=== PATIENT | female | born 1980 | race Caucasian/White ===

== ENCOUNTER → 2019-05-14 13:23 | Outpatient (CLI) | payer OTHER, SELFPAY ==
--- NOTE | 2019-05-14 13:37 | RAD_ITS ---
STUDY: X-RAY - LUMBAR SPINE REASON FOR EXAM: Female, 39 years old. LOWER BACK PAIN, GETTING WORSE TECHNIQUE: 5 view(s) of the lumbar spine were obtained. COMPARISON: None FINDINGS: Normal lumbar lordosis. There is no substantial scoliosis. There is a normal alignment of the vertebrae. Normal vertebral bodies and endplates. Normal disc space heights. The soft tissue structures are unremarkable. RAD/L/S Spine Min 4 Views IMPRESSION: Normal x-ray examination of the lumbar spine. Electronically Signed: Marciano Greco, at 16:39 EST Tel , Service support ,
== END ==
PROVIDERS: PCP Internal Medicine; Referring Provider Internal Medicine; Visit Provider Internal Medicine
DX: M54.5 Low back pain (principal)
CPT/HCPCS: 72110

== ENCOUNTER → 2021-01-26 14:56 | Outpatient (CLI) | payer OTHER, SELFPAY ==
--- NOTE | 2021-01-26 15:00 | BI_ITS ---
MAMMOGRAPHY - BILATERAL SCREENING REASON FOR EXAM: Female, 40 years old. Routine annual screening examination. PERTINENT HISTORY: Non-contributory. TECHNIQUE: Digital bilateral breast pily (3D mammographic acquisition) in the CC and MLO projections. 2-D mediolateral oblique (MLO) and craniocaudad (CC) views of both breasts were obtained. CAD: Full Field Digital Mammography with Computer Added Detection was performed. COMPARISON: None. Baseline examination. FINDINGS: Breast Composition: There are scattered areas of fibroglandular density. There is a 5 mm x 5 nodule in the anterior retroareolar region of the left breast. Correlation with ultrasound is recommended. No other significant abnormalities are identified. BI/SCRN MAMM (CAD)W/PILY BILAT IMPRESSION: 5 mm x 5 mm nodule in the anterior retroareolar region left breast. Collision with ultrasound is recommended. ASSESSMENT CATEGORY: BIRADS Category 0: Incomplete. Need additional imaging evaluation. A letter regarding these results will be sent to the patient by the facility within 30 days. Approximately 10% of breast cancers are not detected by mammography. A normal mammogram should not delay biopsy of a clinically suspicious abnormality. [id number] Electronically Signed: Carlos Medellin MD at 8:08 EST , Service support ,
== END ==
PROVIDERS: PCP Internal Medicine; Referring Provider Internal Medicine; Visit Provider Internal Medicine
DX: Z12.31 Encounter for screening mammogram for malignant neoplasm of breast (principal)
CPT/HCPCS: 77063; 77067

== ENCOUNTER → 2021-01-27 12:26 | Outpatient (CLI) | payer OTHER, SELFPAY ==
--- NOTE | 2021-01-27 12:28 | US_ITS ---
STUDY: ULTRASOUND BREAST - LEFT REASON FOR EXAM: Female, 40 years old. Abnormal screening mammogram. TECHNIQUE: Axial and longitudinal images of the LEFT breast were performed with a high resolution ultrasound transducer. # OF IMAGES: 18 COMPARISON: Comparison is made with prior mammogram dated 01/26/2021. FINDINGS: LEFT Breast: The mammographic abnormality corresponds to a 6 mm x 5 mm x 7 mm well-defined hypoechoic nodular density in the superior retroareolar region of the breast. Biopsy is recommended. US/Breast Limited Unilateral IMPRESSION: 6 mm x 5 mm x 7 mm well-defined hypoechoic nodular density in the superior retroareolar region of the left breast as described. Biopsy is recommended. ASSESSMENT CATEGORY: BIRADS Category 4: Suspicious - Biopsy Should Be Considered. A letter regarding these results will be sent to the patient by the facility within 30 days. Electronically Signed: Carlos Medellin MD at 15:20 EST , Service support ,
== END ==
PROVIDERS: PCP Internal Medicine; Referring Provider Internal Medicine; Visit Provider Internal Medicine
DX: N63.20 Unspecified lump in the left breast, unspecified quadrant (principal)
CPT/HCPCS: 76642

== ENCOUNTER 2021-04-01 09:32 | Day surgery (SDC) | payer OTHER, SELFPAY ==
[2021-04-01] VITALS (8 sets, daily range): BP systolic 88–115; BP diastolic 57–68; PULSE 72–87; RESP 16; TEMP 36.1–36.9; O2SAT 97–100; BMI 24.2
--- NOTE | 2021-04-01 09:45 | BI_ITS ---
SURGICAL BREAST SPECIMEN RADIOGRAPH CLINICAL: Document presence of tissue clip marker in biopsy specimen. FINDINGS: Specimen shows presence of tissue clip marker. Electronically Signed: Carlos Medellin MD at 13:16 EST , Service support , BI/Breast Biopsy Specimen
[2021-04-01 10:00] LABS: Internal QC Validated? YES +Cl - CLEAR BKGD; Pregnancy, Urine Negative Negative
[2021-04-01] MEDS: Lactated Ringers 1,000 ML 15 ML IV ×2 (11:01→14:11)
--- NOTE | 2021-04-01 11:39 | PCM.HP.BLA ---
History and Physical Date of Admission: 04/01/21 HISTORY AND PHYSICAL - BREAST COMPLAINT ? Luly Santillan 1980 ? ? REFERRING PHYSICIAN: ??Neelam Wisdom DO ? CHIEF COMPLAINT:???Abnormal mammogram ?(primary encounter diagnosis) ? HPI: The patient is a 40 year old female with a complaint of?an abnormal mammogram. ?The patient had a mammogram with ultrasound on 01/27/21?which demonstrated left berast mass under nipple: ? ? The patient denies a history of breast masses. ?She does??perform a self breast exam routinely. ?She notes no skin changes. ?She denies nipple discharge. ?She notes no axillary masses. ?She notes no family history of breast problems. ?She notes no significant breast trauma or breast difficulties in the past. ? The patient has had?0?pregnancies. ??Her last mammogram was 01/27/21. . ?Her first menstrual period was at age 15. ? Patient underwent an ultrasound-guided left breast biopsy which came back as an intraductal papilloma with apocrine metaplasia and sclerosis. ? PAST MEDICAL HISTORY ? ? ? PAST MEDICAL HISTORY Diagnosis Date ? Acne ? ? previously seeing Dr. Stanley ? ADHD (attention deficit hyperactivity disorder), inattentive type ? ? Anxiety ? ? Depression ? ? Previously seeing Dr. Brunson in [place] ? Endometriosis, uterus 1999 ? History of genital warts ? ? HPV (human papilloma virus) infection ? ? Hyperlipidemia ? ? Hypothyroidism ? ? Insomnia ? ? Seasonal allergies ? PAST SURGICAL HISTORY ? PAST SURGICAL HISTORY Procedure Laterality Date ? WART REMOVAL WHI ? ? ? laser surgery to removal genital warts ? ? ? CURRENT MEDICATIONS ? Current Outpatient Medications Medication Sig Dispense Refill ? MULTIVITAMIN ORAL Take by mouth once daily. ? ? ? vitamin A/vitamin D3 (NATURAL VITAMIN D ORAL) Take by mouth once daily. ? ? ? rosuvastatin (CRESTOR) 10 mg tablet ? Drospirenone-Ethinyl Estradiol (GIANVI, 28,) 3-0.02 mg per tablet TAKE ONE ACTIVE PILL DAILY CONTINUOUSLY X 3 MONTHS 90 tablet 4 ? sertraline (ZOLOFT) 100 mg tablet Take 1 tablet by mouth twice daily. 180 tablet 1 ? levothyroxine (SYNTHROID) 50 mcg tablet Take 1 tablet by mouth once daily. 30 tablet 5 ? traZODone (DESYREL) 50 mg tablet Take 1.5 tablets by mouth daily at bedtime. 135 tablet 0 ? naproxen (NAPROSYN) 500 mg tablet Take 1 tablet by mouth twice daily as needed. Take with food. 60 tablet 1 ? spironolactone (ALDACTONE) 50 mg tablet Take 2 tablets PO in qam and 1 tablet PO qpm 270 tablet 0 ? buPROPion XL (WELLBUTRIN XL) 300 mg 24 hr tablet Take 1 tablet by mouth once daily. 90 tablet 1 ? CETIRIZINE HCL (ZYRTEC ORAL) Take ?by mouth once daily. ? ? ? Fluticasone Furoate (FLONASE SENSIMIST) 27.5 mcg/actuation nasal spray Use 2 Sprays in each nostril once daily. ? ? ? No current facility-administered medications for this visit. ? ? ALLERGIES:?Sulfa (Sulfonamide Antibiotics) ? PERSONAL HISTORY:? SOCIAL HISTORY Social History ? Tobacco Use ? Smoking status: Never Smoker ? Smokeless tobacco: Never Used Vaping Use ? Vaping Use: Never used Substance Use Topics ? Alcohol use: No ? Drug use: No ?? ? FAMILY HISTORY:? FAMILY HISTORY FAMILY HISTORY Problem Relation Age of Onset ? Colon Cancer Father 46 ? Cancer Maternal Grandmother ?skin ? other (lung cancer) Maternal Grandfather ? ? ? REVIEW OF SYSTEMS: ?General:???The patient NOTES?fatigue, denies?weight loss, denies?weight gain, denies?feeling hot, and denies?feelings of cold. ?Eyes: ?The patient denies?glaucoma, denies?eye injury/surgery, wears?glasses or contacts. ?Ear/Nose/Throat: ?The patient NOTES?allergies, denies?hayfever, denies?ear infections, and denies?bloody noses. ?Cardiovascular: ?The patient denies?chest pain, denies?heart disease, denies?high blood pressure,denies?cardiac stent, denies?prior heart attack, denies?irregular heart beat, NOTES?high cholesterol, ?denies?poor circulation, denies?heart failure, other cardiac issues, denies?claudication, denies?cold feet, denies?peripheral arterial stent. ?Respiratory: ?The patient denies?tuberculosis, denies?pneumonia, denies?frequent cough, denies?pulmonary embolism, denies?shortness of breath, and denies?coughing up blood. ?Gastrointestinal: ?The patient denies?difficulty swallowing, denies?acid reflux, denies?ulcers, denies?vomiting, denies?jaundice/hepatitis, denies?gallbladder problems, denies?black or tarry stools, denies?hemorrhoids, denies?bleeding from rectum, denies?diverticulitis, denies?constipation, denies?diarrhea, denies?loss of stool control, and denies?hernias. ?Kidney/Bladder: ?The patient denies?kidney stones, denies?urine infections, and denies?bloody urine. ?Skin: ?The patient denies?a history of skin cancer, denies?bleeding/changing moles, and denies?a history of skin rash. ?Neurologic: ?The patient denies?a history of epilepsy/convulsions, denies?headaches, denies?head/spinal injuries, and denies?stroke/TIA. ?Psychiatric: ?The patient NOTES?psychiatric medications, NOTES?depression, and denies?voices, denies?substance abuse. ?Endocrine: ?The patient NOTES?thyroid disorders, denies?diabetes, and denies?hormonal problems. ?Hematologic: ?The patient denies?a history of bruising, denies?bleeding, and denies?anemia, denies?blood clots. ?Infections: ?The patient denies?a history of measles and mumps, denies?rheumatic fever, and denies?sexually transmitted diseases. ?Musculoskeletal: ?The patient NOTES?back pain/injury, NOTES?back problems, denies?sciatica, denies?knee/foot trouble, denies?arthritis, or denies?gout. ? ? When was patient's last Mammogram screening??01/26/2021 ? ?Last Colonoscopy: ?2016? ? Remedios Simmons RN. ? ? PHYSICAL EXAMINATION: ? General: ?The patient is 40 year old female, well nourished, well hydrated in no acute distress. ?The patient is oriented to time, place, and person. ? VITALS:?Blood pressure 118/68, pulse 115, temperature 36.7 ?C (98.1 ?F), weight 69 kg (152 lb 3.2 oz), last menstrual period 05/17/2016, SpO2 100 %. ? HEENT: ?Normal cephalic, ataumatic, pupils are equally round, sclera are anicteric, mucous membranes are moist, oropharynx is clear. ?Neck has no masses, asymmetry or lymphadenopathy. ?Thyroid is unremarkable. ? Respiratory: ?Clear to auscultation and percussion. ?Normal respiratory excursion and pattern. ? Cardiac: ?Examination is regular rate and rhythm. ? Abdominal exam: ?Soft, nontender, ?with no palpable masses. ?No hepatosplenomegaly. ?No palpable hernias. ? Rectal exam: ?exam deferred Extremities: ?no clubbing, cyanosis or edema. ?No adenopathy. ? Breast: ?Visual inspection reveals no retractions, nipple inversion, or skin changes. ?Palpation of the right breast reveals no dominant or suspicious masses, but multiple benign-feeling nodules. ?Palpation of the left breast reveals no dominant or suspicious masses, but multiple benign-feeling nodules. ?Axillary exam demonstrates no suspicious masses in either the left or right axilla. ?There is no nipple discharge expressed from either the left or right breast. ? LABORATORY VALUES: As Noted ? RADIOLOGIC STUDIES:??FINDINGS: ? LEFT Breast: The mammographic abnormality corresponds to a 6 mm x 5 mm x 7 mm well-defined hypoechoic nodular density in the superior retroareolar region of the breast. Biopsy is recommended. ? ? US/Breast Limited Unilateral IMPRESSION: 6 mm x 5 mm x 7 mm well-defined hypoechoic nodular density in the superior retroareolar region of the left breast as described. Biopsy is recommended. ? ASSESSMENT CATEGORY: BIRADS Category 4: Suspicious - Biopsy Should Be Considered. A letter regarding these results will be sent to the patient by the facility within 30 days. ? Assessment ? IMPRESSION:?Intraductal papilloma (primary encounter diagnosis) ? PLAN:??I plan to perform a? stereotactic wire localization excisional left breast biopsy the planned surgical procedure was discussed extensively with the patient. ?The risks, benefits, anticipated outcomes and possible complications were mentioned. ?My staff has also explained the procedure in understandable terms and the patient was given the option to take printed material concerning the planned procedure. ?The patient had the opportunity to ask questions concerning the planned procedure. ?The patient freely consents to the planned procedure. ? Diagnoses: Intraductal papilloma D36.9 ? A letter was sent to Dr.?Debra Mark Wisdom, DO?indicating the above finding for this patient. ? Return to Clinic: The patient is instructed to follow-up with me?1 week post operatively. ? COVID (Procedure Consent) Procedure Criteria ? Procedure Criteria: Yes Elective ?The surgeon/proceduralist and patient have discussed in detail the risk of exposure to and/or potential harm posed by the COVID-19 virus with having a surgery/procedure at this time versus the risk of??delaying the surgery/procedure. It is not possible to know either the risk of delaying the surgery or procedure or chance of getting an infection with perfect accuracy, but a joint decision was made between the patient and the surgeon/proceduralist ?to proceed at this time with the scheduled surgery/procedure as indicated on the consent form. ? ? Rolf Alvarado III, MD I have re-examined the patient. There are no clinical changes since date of exam.
--- NOTE | 2021-04-01 11:57 | PCM.OPRPT ---
Problems Associated Problem List Diagnoses (1) Intraductal papilloma: Report of Operation Date of Procedure: 04/01/21 Pre-Operative Diagnosis: Intraductal papilloma left breast Post-Operative Diagnosis: Same Surgery/Procedure Performed:: Wire localization excisional left breast biopsy Surgeon: Jenny server systems administrator: Charles Singletary Type of Anesthesia: General Anesthesiologist: Bam Navarro Special Medications: Left breast intraductal papilloma Description of Procedure: Patient was brought into the mammography unit. Placed in the supine position. Left breast was brought down through the opening. Cc view was obtained. ?15 degree views were obtained. I targeted on the clip. Prepped the breast with Betadine. Inject 1% lidocaine plain. Placed a needle in the clip area. Took 2 more stereo views showing the area to be adequately targeted. Remove the needle leaving the wire in place. Standard mammograms were obtained. Patient was brought in the operating room. Placed in the supine position. Under excellent general anesthetic left breast was sterilely prepped and draped in usual fashion. Circumareolar incision was made. Dissection was carried down to identifying the wire taking the wire dissecting down to the intraductal papilloma removing in its entirety and sending it to x-ray for confirmation that the clip was in the specimen which it was. I had good my stasis. I irrigated out the wound. Brought the wound together with 2-0 Vicryl deep dermal stitches of 3-0 Vicryl then a running 4-0 Monocryl. Steri-Strips were applied sterile dressings were applied and the patient tolerated the procedure well. Admit VTE Documentation VTE Present on Admission: No VTE Mechan Device Prophylaxis: SCD's VTE Pharm Prophylaxis ordered?: No Reason prophylaxis not ordered:: Treatment Not Indicated
--- NOTE | 2021-04-01 12:55 | BRBX_PTH ---
PATIENT: FRANKLIN LOWERY LOC: [facility] [place] U#:[id number] AGE/SX: 41/F ROOM: RE04/01/[address]: Dr. Rolf Alvarado MD : 1980 BED: DIS: 04/01/2021 SPEC #: [id number] RECD: 04/01/21 13:00 STATUS: SAAD PALOMINODavid #: [id number] INO: 04/01/21 12:[address]: Rolf Alvarado DEPT: SURGICAL PATHOLOGY RECD BY: Megan Solomon ENTERED: 04/04/21 08:27 SP TYPE: BREAST BX OTHR DR: Dr. Neelam Wisdom DO Tissues: Left breast, NOS Procedures: Surgery Specimen Level V HEADER OPERATION: Left breast biopsy via wire localization PRE-OP DIAGNOSIS: Intraductal papilloma TISSUE SUBMITTED: Left breast biopsy MICROSCOPIC DIAGNOSIS Left breast, wire localization biopsy: Intraductal papilloma (0.8 cm in greatest dimension). Focal ductal dilatation and minimal intraductal hyperplasia without atypia. Changes consistent with previous biopsy site. MECCA:jesi 04/06/2021 COMMENT Case has been reviewed in consultation with Dr. Ortiz who concurs with the above diagnosis. IDC:AM MICROSCOPIC DESCRIPTION Slides are reviewed. GROSS DESCRIPTION Received in fixative is one container labeled with the patient's name and designated left breast biopsy. The specimen consists of a piece of fibroadipose tissue with needle localization measuring 4 x 3 x 2 cm. No orientation is provided. Also present in the container are two detached pieces of johnson-yellow fibroadipose tissue measuring in aggregate 2.5 x 2 x 0.5 cm. The largest piece is inked black. The largest piece is serially sectioned and reveal johnson-yellow adipose cut surfaces with focal hemorrhagic area. No well-defined mass lesion is identified. The entire specimen is submitted in eight cassettes as follows: 1-6 ? largest piece from one end to another end, 7 & 8 ? detached pieces of tissue. The specimen is submitted after additional fixation. / MECCA:jesi 04/04/2021 TC:1 CPT: 69035
[2021-04-01] MEDS: Lidocaine 1% (30 ml sdv) 30 ML Vial (13:00)
[2021-04-01] MEDS: Bupivacaine Mpf 0.5% 30 ML VIAL (13:00)
--- NOTE | 2021-04-01 13:18 | EX.PCM.DISCH ---
Discharge Instructions Procedure Breast Biopsy Diet Discharge Diet: No restrictions Activity Discharge Activity: Return to Normal Activity May shower in (days): 3 Dressing / Incision Remove Dressing in: 3 days (leave Dermabond in place.) Follow Up Care Please Follow Up With: Rolf Alvarado MD When: Call office to schedule an appointment to be seen in one week. Test Results: Test results from this visit will be discussed in further detail at your follow-up appointment, if applicable. Discharge Plan Admission Attending Provider: Rolf Alvarado Primary Care Provider: Neelam Wisdom Discharge Orders/Prescriptions Prescriptions: New oxycodone-acetaminophen [Percocet] 5-325 mg tablet 1 tab PO Q4H PRN (Reason: pain) 5 Days Qty: 20 RF: 0 No Action trazodone 50 mg Tablet 75 mg PO QHS RF: 0 sertraline 100 mg tablet 100 mg PO BID RF: 0 levothyroxine 50 mcg Tablet 50 mcg PO DAILY RF: 0 spironolactone 50 mg tablet 50 mg PO TID RF: 0 bupropion HCl [Wellbutrin XL] 300 mg Tablet Extended Release 24 Hr 300 mg PO DAILY RF: 0 cholecalciferol (vitamin D3) [Vitamin D3] 125 mcg (5,000 unit) Tablet 125 mcg PO DAILY RF: 0 Zyrtec 10 mg Capsule 10 mg PO DAILY RF: 0 Referrals / Follow Up: Neelam Wisdom DO [Primary Care Provider] - Jany Jeronimo PA-C [PHYSICIAN PROJECT CONTROLS SCHEDULER] - Disposition Discharge Orders: Discharge Patient (Routine); Ordered 04/01/21 Ordered By: Dr. Rolf Alvarado
== END 2021-04-01 23:59 | disposition home or self-care (01) ==
LOC: SDC 09:37 → AC 09:38
PROVIDERS: Anesthesiology; PCP Internal Medicine; Referring Provider Surgery; Visit Provider Surgery
PROC: (CPT 19125; principal; 2021-04-01 12:00)
DX: N60.12 Diffuse cystic mastopathy of left breast (principal); N62 Hypertrophy of breast; E03.9 Hypothyroidism, unspecified; E78.00 Pure hypercholesterolemia, unspecified; F32.A Depression, unspecified; F41.9 Anxiety disorder, unspecified; Z79.899 Other long term (current) drug therapy
CPT/HCPCS: 19125; 00400; 19281; 76098; 81025; 88305; 88307; J7120; J2405

== ENCOUNTER → 2022-09-28 | Outpatient (CLI) | payer OTHER, SELFPAY ==
--- NOTE | 2022-09-28 14:42 | BI_ITS ---
MAMMOGRAPHY - BILATERAL SCREENING REASON FOR EXAM: Female, 42 years old. Routine annual screening examination. PERTINENT HISTORY: Non-contributory. Prior left excisional breast biopsy. TECHNIQUE: Digital bilateral breast pily (3D mammographic acquisition) in the CC and MLO projections. 2-D mediolateral oblique (MLO) and craniocaudad (CC) views of both breasts were obtained. CAD: Full Field Digital Mammography with Computer Added Detection was performed. COMPARISON: Comparison is made with prior study dated January 26, 2021 and April 01, 2021. FINDINGS: Breast Composition: There are scattered areas of fibroglandular density. There are no dominant masses or suspicious calcifications. The previously seen retroareolar nodule in the retroareolar region of the left breast has been resected. Postoperative scarring is seen. No new abnormality is seen. No other significant abnormalities are identified. There has been no significant change since the prior study. BI/SCRN MAMM (CAD)W/PILY BILAT IMPRESSION: Status post resection of the retroareolar nodule in the left breast. Yearly follow-up mammogram recommended. (A) ASSESSMENT CATEGORY: BIRADS Category 2: Benign. A letter regarding these results will be sent to the patient by the facility within 30 days. Approximately 10% of breast cancers are not detected by mammography. A normal mammogram should not delay biopsy of a clinically suspicious abnormality. [id number] Electronically Signed: Carlos Medellin MD at 15:17 EDT ,
== END | disposition home or self-care (01) ==
LOC: OPBI 14:41
PROVIDERS: PCP Internal Medicine; Referring Provider Internal Medicine; Visit Provider Internal Medicine
DX: Z12.31 Encounter for screening mammogram for malignant neoplasm of breast (principal)
CPT/HCPCS: 77063; 77067

== ENCOUNTER 2022-10-02 08:00 | Outpatient (RCR) | payer OTHER, SELFPAY ==
--- NOTE | 2022-10-02 09:00 | BH.SGPN.GN ---
Behaviors/Verbalizations/Mental Status: [] Eye contact is good. Motor activity is appropriate. Appearance is casual. Speech is Appropriate. Mood is anxious. Affect is congruent. Thoughts are linear and logical. No evidence of psychosis. Reviewed daily check in sheet and no reports of suicidal ideations or intent. Client Response/Progress/Benefit: [] Pt participated when prompted. Attentive. Daily symptom tracker notes 06/21 for depression and anxiety. This was pt's first day in IOP. She introduced herself to the group and stated that she entered IOP due to being overwhelmed with her emotions. i hope to feel better. Discussed how anxiety and depression have impacted her energy, motivation, and ability to complete tasks around the house. I need to figure out how to manage myself. Currently on FMLA from work which is leading to feelings of guilt. Slightly guarded as this was her first day in IOP. Group empathized with her struggle and provided feedback/advice for her first day and week in the IOP which was beneficial. No progress noted as this was pt's first day in IOP. Will continue in IOP to prevent decompensation, increase healthy coping, and improve functioning to return to work. Narrative Note: []
--- NOTE | 2022-10-02 10:15 | BH.SGPN.GN ---
Behaviors/Verbalizations/Mental Status: []Pt alert and oriented, casually dressed and groomed. Eye contact good. Motor activity appropriate. Speech within normal limits. Affect congruent, mood anxious and depressed. Thoughts linear, logical, no signs of hallucinations or delusions. Client Response/Progress/Benefit: []Pt responded well to session, attentive and providing to discussion. Pt connected with the quote and discussion reviewing the functions of various emotions. Attentive throughout psychoeducation on the functional role and benefits of guilt, as well as differences between appropriate and inappropriate guilt. Group discussed the harmful impacts of unmanaged guilt which included poor boundaries, feeling inadequate, and creating an unhealthy maintenance cycle. Pt participated in group activity highlighting the impacts of inappropriate guilt in team collaboration or reaching a goal. Pt then completed a self-reflection activity in which they identified their own experiences with inappropriate guilt and impacts on pt?s mental health. Shared struggling with inappropriate guilt when taking time off work for her own mental and physical health needs. Pt appeared to benefit from learning about the different types of guilt and how unmanaged guilt can impact mental health. Pt will continue IOP tx to promote mood stability, increase ability to challenge distortions, and continue to improve daily functioning. Narrative Note: []
--- NOTE | 2022-10-02 11:15 | BH.SGPN.GN ---
Behaviors/Verbalizations/Mental Status: []Pt alert and oriented, neatly dressed and groomed. Eye contact good. Motor activity appropriate. Speech within normal limits. Affect congruent, mood anxious. Thoughts linear, logical, no signs of hallucinations or delusions. Client Response/Progress/Benefit: [] Pt engaged participant AEB listening attentively to others and providing input throughout group. During challenge activity pt worked cooperatively with small group. Pt made connection that it takes patience and problem solving to work through appropriate and inappropriate guilt. Pt worked with their small group to identify strategies to manage unhealthy guilt. Pt stated pt often feels inappropriate guilt for taking time off work. Pt selected wanting to work on practicing self-compassion and acceptance to challenge inappropriate guilt. Pt seemed to benefit from learning about strategies to manage appropriate and inappropriate guilt. Pt to continue IOP to prevent decompensation, improve daily functioning, and combat distortions. Narrative Note: []
--- NOTE | 2022-10-02 11:47 | BH.COMM_ITS ---
Communication Note Communication with Client Communication Note: Met with pt today to complete initial paperwork. No significant changes since pre-admission screening. Completed [facility]. Denies active SI or hx of SI. Does report passive thoughts of I wish I could go to sleep and not wake up. Denies these thoughts in the past month. Denies active plan or intent. Pt does not have a hx of past attempts or self- harm. Reports family and friends as major protective factors. Future oriented and willing to seek crisis services if feeling unable to maintain safety at any time. Consulted with Dr. Bradshaw with plan to admit to IOP with dx of F33.2
--- NOTE | 2022-10-04 11:25 | BH.NA ---
Physical Data Vital Signs Pulse Rate: 83 Blood Pressure: 118/74 Height/Weight Height: 1.68 m Weight:: 70.76 kg Weight in Pounds: 156.0 lbs Current Medication Compliance Medication Compliance Do you take your medication as prescribed?: Yes Nutritional History Appetite Nutritional Instructions: Describe your appetite:: Good Additional nutritional information:: Denies recent change in appetite or weight change. Functional Assessment Sleep Pattern Describe any problems with sleeping: Client states she currently sleeps 8-10 hours per day. Sensory/Communication Assess Vision Problems Do you have any vision problems?: Glasses Communication Problems Do you have difficulty understanding what people are saying?: No Medical Problems/History Cardiac Conditions Cardiovascular: Other (See comments) (high cholesterol) Metabolic Conditions Metabolic: Hypothyroidism Pain Assessment Do you have acute or chronic pain?: Yes (back) Surgical History Surgical History Have you had any surgeries? If so, list type and date:: Yes (papilloma removal on breast) Substance Abuse Substance Abuse Please describe substance abuse in the last 30 days:: Client denies alcohol, tobacco or drug use. Client states she drinks 1 caffeinated pop per day. Mental Status Summary Mental Status Significant Findings/Observations on Appearance and Mood:: Client is alert and oriented x 4. Client is casually groomed with good hygiene. Client is cooperative with assessment. Client makes good eye contact. Client's voice has normal rate and volume. Client appears mildly depressed and mildly anxious. Client's affect is somewhat flat. Client makes logical associations and has normal processing. Client denies delusions/hallucinations. Client denies SI. Suicide Assessment Suicidal Ideation Are you currently or have you been suicidal in the past?: Yes (denies SI at this time) Suicidal Intentional Rating Scale (SIRS): Suicidal thoughts (past) Physician Notification Past Psychiatric History MH Treatment Hx Past Psychiatric Medications:: Ritalin, Adderall, Concerta, Prozac, Pristiq, Lexapro, Effexor, Viibyrd, Cymbalta Age of first mental health symptoms: Client states she was first on medications for anxiety/depression around age 19. Current providers for mental health treatment (counselor, psychiatrist, case management associate, etc.): Client has an appointment to establish care with Dr. French for psychiatry. Fall Risk Assessment Age Age: Less than 60 Mental Status Mental Status: Willing & able to ask for assistance when needed Physical Status Physical Status: No problems Impairments Impairments: None Elimination Elimination: Continent AND independent Gait or Balance Gait or Balance: Walks independently Hx of Falls History of falls in the past 6 months: No known history Medications/Substances Psychotropics:: Antidepressants Others:: Diuretics Medications/substances used within the past 24 hours or ordered to administer: 1-2 of the medications/substances listed above Total Score Total Points:: 1 RN Summary of Impressions Impressions Recommendations Impressions: Psychiatric Issues: 1. Major depressive disorder, recurrent, severe without psychosis 2. Social anxiety disorder 3. Body dysmorphic disorder Level of Care How do the client's current symptoms and functional deficits support need for this level of care?: Client was referred to IOP by PCP for depression affecting daily life. Client states for the last year, she has been taking many sick days from work saying it is due to back pain (which she states she does have, but sometimes she says it is due to back pain when really she wants a day off for her depression/anxiety) and she is out of sick days. Client states she lives across the street from her job, so when she does call off, she feels like she can't live her house. Client states this isolation adds on to the depression she already feels. Client reports anhedonia and a decrease in her ADL's, finding it hard to get out of bed. Client denies SI at this time. IOP will promote gains and prevent further decompensation while providing social support and skills training.
[2022-10-04 11:52] VITALS: BP 118/74; PULSE 83
--- NOTE | 2022-10-04 13:22 | BH.PSY.EVA_ITS ---
Psychiatric Evaluation Initial Evaluation Initial Evaluation: History of Present Illness: [] The patient is a 42-year-old single, female with a history of depression, anxiety and ADHD who is referred by her primary care provider to the [facility] behavioral health IOP program for worsening depression, thoughts of and isolation. The patient currently lives alone and has no pets. For primary support she has her mother and she enjoys her mother's dog. 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 She is applying for FMLA time off from her job. The patient is having a hard time functioning at home and at work and has a hard time leaving her apartment lately due to her depression and anxiety. She states that it is really hard for her to get out of bed in the morning. She has been missing a lot of work due to back pain and depression and she states that it is difficult because she lives [place] the street from her workplace. For this reason she has to stay inside the house and no one from work sees her when she is off work. She has a lot of social anxiety partially due to her body image issues which she has had since her teens. The patient always feels like she is fat and does not look good and she dislikes her entire body. These issues worsen when she leaves her house. She denies any history of self-harm. No caffeine use. Her symptoms have slowly worsened over the past 3 years. Her mood is sad and she has low motivation. She endorses hopelessness, worthlessness, anhedonia, decreased concentration, low energy, passive thoughts of . Sleep has improved with trazodone. Appetite is okay. She denies suicidal ideation, plan for suicide and her mother is protective when she thinks of suicide. She denies homicidal ideation, hallucinations, delusions or symptoms of vale. She is a worrier by nature but denies panic attacks, OCD, seizure, head trauma, trauma, or PTSD. She did have in ninth grade tried to purge for about 2 weeks but was unable to continue it. Current Psychiatric Medications: [] Wellbutrin XL 300 mg p.o. every morning (on and off this for over 20 years and has been on it for 10 years); trazodone 75 mg p.o. nightly; Zoloft 200 mg p.o. daily (x10 years). Past Psychiatric History: [] No psych admits. No suicide attempts ever. She was diagnosed with ADD in 2002 at age 22 because high school and college got a lot harder and her brother was diagnosed with ADHD. She took Ritalin Concerta and Adderall in the past and they helped somewhat but Vyvanse did not go well for her. She has been on medications for depression for the most part since high school. She was first depressed in middle school. She had counseling after college which may have been a little helpful. Past medications include Prozac, Pristiq, Cymbalta, Lexapro and Effexor. Substance Use History: [] No alcohol use. No marijuana and no drug use. No vaping and non-smoker. Allergies: [] Sulfa Medications: [] Psych meds plus spironolactone 100 mg p.o. twice daily for acne since high school. She has her electrolytes checked regularly. Synthroid and [id number] allergy meds. Past Medical History: [] Hypothyroidism, acne, chronic fatigue syndrome since high school. She had a lumpectomy of her breast but no other surgeries. 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 She has some hot flashes at night. She is not sexually active in the recent past. Family Psychiatric History: [] Mother has depression. Brother has ADHD. No suicides in the family. Brother is alcoholic. Mother is 69 years old and father at age 48 of colon cancer. Personal/Social History: [] She was born and raised in [place] and describes her childhood as up-and-down. Her parents when the patient was 4 years old and she stayed mostly with her mother but that she saw her father and his new . The patient did not get along with her stepfather and did not get along with her stepmother 1 young. Mother and the same stepdad twice when the patient was like age 7 to age 13 and she did not get along with the stepfather. She denies abuse from her parents. She was in [place] for work but moved back to [place] 6 years ago because she did not have friends in [place] [facility] [place] but she also says she does not have friends in [place]. She never and has and has had no serious relationships. She is heterosexual. School was okay for her but it was harder after high school and she graduated high school and got a BA in moravian studies and a masters in environmental science. She worked a few jobs and changes about every 7 years. Legal History: [] No arrests. No DUIs. 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 Review of Systems: [] Review of systems is negative except for those symptoms of her fatigue and chronic fatigue syndrome and some hot flashes. Vital Signs: [] Vital signs and exam reviewed in the records and in the nurses notes and updated and the patient is deemed medically able to participate in the IOP program. Mental Status Examination: [] The patient is a 42-year-old female who appears normal for stated age and is casually dressed and groomed with good hygiene. She is cooperative during the interview and is ambulatory with a normal gait. She has no psychomotor agitation or retardation. Eye contact is good and speech is normal rate and rhythm and fluent with no pressure. Mood is depressed. Affect is constricted. Thought process is goal-directed and organized. Thought content: There is evidence of passive thoughts of and social anxiety. There is no evidence of suicidal ideation, plan for suicide, homicidal ideation, hallucinations or delusions. Reality testing is intact. Intelligence is average. Judgment is intact. Insight: Fair. Impulsivity: Low. Diagnoses: [] 1. Major depressive disorder, recurrent, severe without psychosis 2. Social anxiety disorder 3. Body dysmorphic disorder 4. Primary support, work issues Plan: [] The patient will start the IOP program in behavioral health at [facility] as the structure, support, education and group therapy will hopefully prevent worsening of the patient's symptoms. She felt safe during the interview and if it anytime she does not feel safe she will let us know or go to the emergency room. The risk, options, possible complications and side effects of the medications were discussed in detail with the patient and she understands and accepts these. The patient agrees to increase her Wellbutrin to 450 mg daily and prescription is sent in for this to help with her depression. She understands it might help with her ADD also. The patient will continue to follow-up with her outpatient providers and I will see the patient in follow-up in several weeks.
--- NOTE | 2022-10-04 13:33 | BH.DR.ITP ---
Initial Treatment Plan Patient Information Visit Information: ADMISSION DATE: EXPECTED LOS: 4-6 weeks Problems/Symptoms Problem #1:: Depression Symptom:: Sadness, hopelessness, worthlessness, anhedonia, low energy, fatigue, decreased concentration, passive thoughts of Problem #2:: Anxiety Symptom:: Worry, social anxiety, avoidance
--- NOTE | 2022-10-05 10:10 | BH.SGPN.GN ---
Behaviors/Verbalizations/Mental Status: [] Eye contact is good. Motor activity is appropriate. Appearance is casual. Speech is Appropriate. Mood is depressed/irritable. Affect is congruent. Thoughts are linear and logical. No evidence of psychosis. Client Response/Progress/Benefit: [] Limited participation in group discussions however did participate in group activities. Attentive during psychoeducation. Engaged during activity in which she identified which type of foods (i.e. carbs, sugar, salt, fast food, caffeine, etc) she seeks out when sad, tired, angry, rushed, anxious, etc. Pt was able to identify an unhealthy food cycle which included; being tired/stressed from work --> get something sugary and drink a soda ---> alters brain chemistry/gut health, inflammation in brain ---> increased fatigue, crave fast food. Pt was able to identify the impact that certain foods have on her mental health which was beneficial. Will continue in IOP to prevent decompensation, increase healthy coping, and improve functioning. Narrative Note: []
--- NOTE | 2022-10-06 09:00 | BH.SGPN.GN ---
Behaviors/Verbalizations/Mental Status: [] Eye contact is good. Motor activity is appropriate. Appearance is casual. Speech is Appropriate. Mood is anxious. Affect is congruent. Thoughts are linear and logical. No evidence of psychosis. Reviewed daily check in sheet and no reports of suicidal ideations or intent. Client Response/Progress/Benefit: [] Pt participated at times during the group discussion. Attentive. Emotion for today is ? disappointed yet hopeful?. Reports that her Sunday as positive however ? I laid in bed all day? yesterday. Group worked with patient to identify aspects of her depressive episode to learn from and skills to implement when another depressive episode occurs. Progress noted based on increased insight and psychoeducation. Benefited from group support, encouragement, and feedback. Will continue in IOP to improve functioning, increase healthy coping, and prevent decompensation. Narrative Note: []
--- NOTE | 2022-10-06 10:15 | BH.SGPN.GN ---
Behaviors/Verbalizations/Mental Status: []Pt alert and oriented, neatly dressed and groomed. Eye contact good. Motor activity appropriate. Speech within normal limits. Affect congruent, mood anxious. Thoughts linear, logical, no signs of hallucinations or delusions. Client Response/Progress/Benefit: []Pt was an active participant during small group discussions. Attentive during psychoeducation on the six types of boundaries. Pt along with peers contributed to interactive discussion on defining what a boundary is and group identified challenges to setting boundaries. Pt discussed personal barriers of fear of retaliation and not knowing what boundary to set. Pt?s group also identified the benefits of boundary setting which included ?self-respect and clear expectations.?? Pt contributed during his small group discussion. benefited from increased awareness and insight on the importance/benefit to setting health boundaries. Pt?s first week of IOP. Will continue IOP tx to prevent decompensation, improve daily functioning and combat distortions. Narrative Note: []
--- NOTE | 2022-10-06 11:15 | BH.SGPN.GN ---
Behaviors/Verbalizations/Mental Status: []Pt alert and oriented, casually dressed and groomed. Eye contact good. Motor activity appropriate. Speech within normal limits. Affect congruent, mood depressed and anxious. Thoughts linear, logical, no signs of hallucinations or delusions. Client Response/Progress/Benefit: []Pt remained an active participant AEB providing contributions to group discussion, listening attentively to others, and engagement in small group discussion. Pt attentive during psychoeducation on the different boundary styles. Pt did well to work within the small group on identifying strategies for establishing and maintaining healthy boundaries. Pt identified wanting to work on improving her time boundaries by taking steps to establish healthier limits for how long she spends at her mother?s when visiting. Appeared to benefit from increased awareness of boundary styles and strategies to improve setting boundaries. Will continue IOP tx to increase consistent use of healthy coping skills, challenge distortions, and prevent decompensation. Narrative Note: []
--- NOTE | 2022-10-06 13:37 | BH.MTP_ITS ---
Master Treatment Plan Patient Information Program Physician:: Dr. Bradshaw Primary Therapist:: Jessica Mccurdy, [facility] Psychiatric Diagnoses Psychiatric Diagnoses:: 1. 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 Social anxiety disorder 3. Body dysmorphic disorder Diagnosis Code(s):: F33.2 Estimated LOS Estimated LOS (in weeks):: 6 Problem/Goal #1 Problem/Goal #1 Stated Goal:: Client will reduce depressive symptoms, low motivation, and anhedonia due to Major Depressive Disorder through Intensive Outpatient Program. Objectives Objective #1: Stated Objective: Client will learn and utilize 2-3 healthy coping strategies to manage depressive symptoms. Interventions: Therapist will utilize CBT techniques to assist client with understanding the connection between thoughts, feelings and behaviors. Education will be provided on behavioral activation. Therapist will assist client in learning internal coping strategies to manage depressive symptoms, along with helping client identify triggers. Discharge Criteria: Client will have achieved this goal when can verbalize and has practiced at least 2 healthy coping strategies that successfully manage depressive symptoms. Objective #2: Stated Objective: Pt will decrease depressive symptoms AEB pt?s score on the DSM 5 cross-cutting measure and improve pt?s daily functioning. Interventions: Through groups and individual therapy, pt will be provided with education on cognitive distortions, mistaken beliefs, and identifying and combating negative self-talk. Therapist will assist pt with getting back into the activities she once enjoyed as well as increasing healthy coping strategies. Discharge Criteria: Pt will have met this goal when pt?s score on the DSM 5 cross cutting measure for depression has been decreased and per pt?s report daily functioning has improved. Problem/Goal #2 Problem/Goal #2 Stated Goal:: Stabilize anxiety level while increasing ability to function on daily basis. Objectives Objective #1: Stated Objective: Client will learn and implement 2-3 calming skills to r educe overall anxiety and manage anxiety symptoms. Interventions: Therapist and groups will teach calming/relaxation skills and how to apply these skills to everyday life. Discharge Criteria: Client will have achieved this goal when can verbalize and consistently utilize at least 2 calming strategies that client reports help decrease anxious symptoms. Objective #2: Stated Objective: Pt will decrease anxious symptoms AEB pt?s score on the DSM 5 cross-cutting measure improve pt?s daily functioning. Interventions: Through groups and individual therapy, pt will be provided education about anxiety?s impact on body and common physiological reaction to anxiety. Therapist will teach pt appropriate breathing techniques and build healthy coping skills to manage daily anxieties. Discharge Criteria: Pt will have met this goal when pt?s score on the DSM 5 cross cutting measure for anxiety has been decreased and per pt?s report daily functioning has improved.
--- NOTE | 2022-10-06 20:24 | BH.MDN ---
Multi-Disciplinary Note Note 45-min Individual: Time Started:: 12:00 Date: 10/06/22 Purpose of session/treatment goals addressed:: Purpose of session was to build rapport, gather background information, and identify treatment plan goals. Eye Contact:: Fair Motor Activity:: Appropriate Appearance:: Casual Speech:: Appropriate Mood:: Anxious and Depressed Affect:: Constricted Thoughts:: Linear, Logical and No evidence of hallucinations/delusions noted Staff Interventions:: thought challenging, psychoeducation on: (cognitive triangle, behavior activation, and cleaning strategies.), CBT techniques, mindfulness skills, strengths perspective, treatment planning, goal setting and taught coping skills Client Response:: Client stated she is doing ok this week. Client reported IOP has been going better than she had thought. Client stated while in IOP she would like to work on being less afraid to go out in public and be less conscious about what others think of her. Client reported she struggles to leave her house to go anywhere but her moms house because she has significant anxiety others are judging her. Client stated she has struggled majority of her life with body image issues. 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 Client connected with psychoeducation about cognitive triangle and behavior activation. Client connected with education stating there are many things that she hasn't been doing due to lack of motivation and high anxiety. Client stated previous hobbies she used to engage in include: coloring, crafting, playing wii, swimming, hiking, and mind puzzles. Client reported there are many hobbies that she hasn't engaged in for a while. Client stated over the weekend she will engage in at least one of her hobbies and will focus on cleaning out her fridge for at least 15 minutes each day. Risks/Concerns:: client denies suicidal ideation, plan, or intention to date. Progress Toward Goals/Plan:: Progress noted client showing up to IOP consistently. Client's first week in IOP. Session focused on building rapport and identifying treatment goals. Client struggles with significant anxiety that keeps her from being social, taking walks, and leaving her house. Client's anxiety contributes to her depression due to being isolated. Client to continue IOP to increase healthy coping, improve daily functioning, and prevent decompensation. Time Stopped:: 12:45
--- NOTE | 2022-10-09 09:00 | BH.SGPN.GN ---
Behaviors/Verbalizations/Mental Status: []Pt alert and oriented, casually dressed and groomed. Eye contact fair. Motor activity WNL. Speech within normal limits. Affect constricted, mood depressed. Thoughts linear, logical, no signs of hallucinations or delusions. Reviewed pt?s symptom tracker, no reported suicidal ideation, denies plan, or active intent. Client Response/Progress/Benefit: [] Pt responded well to session, open to contributing with group and engaged. Per symptom tracker pt reports a 4/5 for depression and 2/5 for anxiety. Patient reported mental positive as being able to wear a bathing suit when she started her physical therapy in the pool. Client reported she was able to manage any negative thoughts and it did not prevent her from engaging in her physical therapy. Client said additional months of positive as making a pop up card craft with ro which was part of her homework to engage in opposite action and do something that she used to enjoy. Client reported current stressor as feeling frustrated with herself for sleeping and on Sunday which made her feel more down and depressed but recognizes she was able to get up and go to her moms instead of laying in bed all day. Seemed to benefit from support from peers. Pt will continue IOP tx to increase consistent utilization of healthy coping skills, challenge negative thinking, and prevent decompensation.
--- NOTE | 2022-10-09 10:10 | BH.SGPN.GN ---
Behaviors/Verbalizations/Mental Status: [] Eye contact is good. Motor activity is appropriate. Appearance is casual. Speech is Appropriate. Mood is depressed. Affect is congruent. Thoughts are linear and logical. No evidence of psychosis. Client Response/Progress/Benefit: [] Attentive during group discussions and psychoeducation on SMART goals. Participated in experiential activity. Attentive during interactive discussion on the benefits of setting goals which group identified as; increase self-worth, increase confidence, can motivate us, can lead to personal growth, and can give one a sense of purpose. Attentive during interactive discussion on possible obstacles to obtaining goals which involved; little patience, low motivation, feeling burned out, setting unrealistic goals, limited time, stressors, other responsibilities, negative self-talk, doubt, cognitive distortions, lack of resources, and lack of focus. Benefited from increased understanding of benefits of goals, obstacles to obtaining goals, and methods for setting appropriate goals (SMART goals). Will continue in IOP to prevent decompensation, maintain safety, increase healthy coping, and improve functioning to return to work. Narrative Note: []
--- NOTE | 2022-10-09 11:15 | BH.SGPN.GN ---
Behaviors/Verbalizations/Mental Status: []Pt alert and oriented, casually dressed, appropriately groomed. Eye contact good. Motor activity appropriate. Speech within normal limits. Affect congruent, mood anxious and depressed. Thoughts linear, logical, no signs of hallucinations or delusions. Client Response/Progress/Benefit: []Pt was engaged during discussion and willing to complete the worksheet challenging them to develop a personal SMART goal. Pt chose the goal of taking her dog, Sarah, on a walk 1-2x over the next week. Pt stated this will benefit them by improving her mood, reduce isolation, and get her physically active. Pt identified barriers which included forgetting, negative self-talk, weather, and low motivation. Identified for low motivation she will use opposite action, remind herself to prioritize self-care, and challenge herself to stretch before. Pt receptive to identifying solutions for these barriers and willing to begin working on this goal. Benefited from this group by developing a short-term SMART goal related to mental health. Will continue IOP to increase self-care, improve identification and use of healthy skills, and prevent decompensation. Narrative Note: []
--- NOTE | 2022-10-10 09:00 | BH.SGPN.GN ---
Behaviors/Verbalizations/Mental Status: [] Pt alert and oriented, neatly dressed and groomed. Eye contact good. Motor activity appropriate. Speech within normal limits. Affect congruent, mood euthymic and anxious. Thoughts linear, logical, no signs of hallucinations or delusions. Reviewed pt?s symptom tracker, no risk for suicidal ideation, plan, or intent 10/10/22 Client Response/Progress/Benefit: []Pt responded well to session, attentive and engaged. Pt reports feeling stressed this morning due to changes with her [place] paperwork. Pt is anxious that she will not get to new paperwork back in time, but pt was receptive to things she could do to manage this stressors. Pt stated being at IOP today is a win because when pt gets stressed she isolates. Pt also gave herself credit for cleaning some over the weekend. Pt appeared to benefit from reflecting on her wins and connecting with peers. Pt will continue IOP tx to prevent decompensation, increase use of healthy coping skills, and improve daily functioning. Narrative Note: []
--- NOTE | 2022-10-10 11:10 | BH.SGPN.GN ---
Behaviors/Verbalizations/Mental Status: []Client alert and oriented, casually dressed and groomed. Eye contact good. Motor activity appropriate. Speech within normal limits. Affect constricted, mood anxious. Thoughts linear, logical, no signs of hallucinations or delusions. Client Response/Progress/Benefit: []Pt was attentive throughout AEB contributing at times to small group discussion and self-reflection. Group finished processing cues to anger worksheet. Pt worked on completing own anger cycle. Shared one of her anger cycles is when her mom repeatedly texts her which leads to thinking she's so annoying. Stated this thought results in her feeling frustrated/irritated and as a result acts more short towards mom, ignore her, or eat. Pt attentive as group brainstormed healthy coping skills for better managing anger which included: music, walking/exercise, taking a break, grounding tools, reflection, and journaling. Pt worked in small groups to identify ways could interrupt his anger cycle. Pt appeared to benefit from identifying different techniques to manage anger as well as gaining awareness of potential consequences of unmanaged anger. Will continue IOP tx to increase healthy coping skills, challenge distorted thoughts, and prevent decompensation.
--- NOTE | 2022-10-10 11:10 | BH.SGPN.GN ---
Behaviors/Verbalizations/Mental Status: []Pt alert and oriented, casually dressed and groomed. Eye contact good. Motor activity appropriate. Speech within normal limits. Affect congruent, mood depressed and anxious. Thoughts linear, logical, no signs of hallucinations or delusions. Client Response/Progress/Benefit: []Pt responded well to session AEB contributing to discussion, taking notes, and listening attentively to others. Group discussed the benefits of managed anger and anger as a secondary emotion. Pt shared perspective on personal benefits of anger as motivation or facilitating change. Pt completed worksheet on anger triggers and personal warning signs of anger. Pt identified their biggest triggers as waiting behind slow people in line, people continuing to text her if she doesn?t respond as quickly as they want, or not being able to find something. Appeared to benefit from increased knowledge of the anger cycle as well as personal triggers. Pt to continue IOP to promote healthy coping skill application, improve self-confidence, and prevent decompensation. Narrative Note: []
--- NOTE | 2022-10-13 10:03 | BH.SGPN.GN ---
Behaviors/Verbalizations/Mental Status: [] Client alert and oriented, neatly dressed and groomed. Eye contact good. Motor activity appropriate. Speech within normal limits. Affect full, mood euthymic. Thoughts linear, logical, no signs of hallucinations or delusions Client Response/Progress/Benefit: [] Client was an active participant in group discussion and experiential activity. Attentive during psychoeducation on resilience. Participated in interactive discussion with peers on the definition of resilience and where it comes from. Group identified that resiliency can be impacted by; past experiences, physical and mental health status, and supports. Able to relate experiential activity of group juggle to topics of resilience. Worked well with peers in small group in which they identified factors that contribute to resilience. Benefited from increased awareness of resilience and the factors that contribute to building resilience. Will continue in IOP to prevent decompensation and increase overall functioning. Narrative Note: []
--- NOTE | 2022-10-13 11:13 | BH.SGPN.GN ---
Behaviors/Verbalizations/Mental Status: [] Client alert and oriented, neatly dressed and groomed. Eye contact good. Motor activity appropriate. Speech within normal limits. Affect full, mood euthymic. Thoughts linear, logical, no signs of hallucinations or delusions Client Response/Progress/Benefit: [] Client responded well to session AEB completing the resilience worksheet provided. Client participated in the discussion and worked cooperatively with group to identify strategies to enhance each of the components discussed. Client reports belief they already use resilience trait of ?moving towards goals.? Client indicated that they want to work on nurturing a positive view of themselves. Client stated they would like to continue to develop resilience trait of ?self-awareness.? Client seemed to benefit from discussing strategies for improving personal resilience and identifying resilience traits client already possesses. Will continue IOP tx to increase overall functioning and prevent decompensation. Narrative Note: []
== END 2022-10-16 23:59 ==
LOC: BHIOP 08:00
PROVIDERS: PCP Internal Medicine; Referring Provider Psychiatry & Neurology Psychiatry; Visit Provider Psychiatry & Neurology Psychiatry
DX: F33.2 Major depressive disorder, recurrent severe without psychotic features (principal)
CPT/HCPCS: S9480; 90834; 90853

== ENCOUNTER → 2022-10-02 | Outpatient (CLI) | payer OTHER, SELFPAY ==
--- NOTE | 2022-10-02 15:30 | US_ITS ---
STUDY: ULTRASOUND OF THE FEMALE PELVIS - COMPLETE REASON FOR EXAM: Female, 42 years old. menorrhagia LMP: TECHNIQUE: Transabdominal and transvaginal TECHNICAL QUALITY: Adequate. COMPARISON: None. FINDINGS: The uterus is anteverted and is in a midline position. The uterus measures 6.9 x 3.8 x 3.3 cm. Normal uterine cervix. The endometrium measures 4.5 mm in thickness, and is hyperechoic. There is no demonstrated endometrial mass. There is heterogeneous appearance to the myometrium but no demonstrated myometrial mass. I.U.D. - The patient does not have an I.U.D. The right ovary is visualized. The right ovary measures 1.6 x 1.7 x 0.8 cm. Small cyst measuring 1.3 x 1.4 x 0.9 cm. There is no visualized right adnexal mass or complex lesion. There is normal arterial and normal venous vascularity. The left ovary is visualized. The left ovary measures 1.9 x 1.5 x 1.2 cm. Small left ovarian cyst measuring 1.2 x 1 x 0.9 cm. There is no visualized left adnexal mass or complex lesion. There is normal arterial and normal venous vascularity. There is no fluid in the cul-de-sac. The pre void volume of the bladder was ml. The post void volume of the bladder was ml. Polycystic ovary disease: No. US/Pelvic (Non ) IMPRESSION: Small bilateral ovarian cysts. Mildly heterogeneous myometrial echogenicity but no discrete fibroid. Electronically Signed: Joey Live MD at 20:55 EDT ,
--- NOTE | 2022-10-02 15:30 | US_ITS ---
STUDY: ULTRASOUND OF THE FEMALE PELVIS - COMPLETE REASON FOR EXAM: Female, 42 years old. menorrhagia LMP: TECHNIQUE: Transabdominal and transvaginal TECHNICAL QUALITY: Adequate. COMPARISON: None. FINDINGS: The uterus is anteverted and is in a midline position. The uterus measures 6.9 x 3.8 x 3.3 cm. Normal uterine cervix. The endometrium measures 4.5 mm in thickness, and is hyperechoic. There is no demonstrated endometrial mass. There is heterogeneous appearance to the myometrium but no demonstrated myometrial mass. I.U.D. - The patient does not have an I.U.D. The right ovary is visualized. The right ovary measures 1.6 x 1.7 x 0.8 cm. Small cyst measuring 1.3 x 1.4 x 0.9 cm. There is no visualized right adnexal mass or complex lesion. There is normal arterial and normal venous vascularity. The left ovary is visualized. The left ovary measures 1.9 x 1.5 x 1.2 cm. Small left ovarian cyst measuring 1.2 x 1 x 0.9 cm. There is no visualized left adnexal mass or complex lesion. There is normal arterial and normal venous vascularity. There is no fluid in the cul-de-sac. The pre void volume of the bladder was ml. The post void volume of the bladder was ml. Polycystic ovary disease: No. US/Transvaginal Non- IMPRESSION: Small bilateral ovarian cysts. Mildly heterogeneous myometrial echogenicity but no discrete fibroid. Electronically Signed: Joey Live MD at 20:55 EDT ,
== END | disposition home or self-care (01) ==
PROVIDERS: PCP Internal Medicine; Referring Provider Internal Medicine; Visit Provider Internal Medicine
DX: N92.0 Excessive and frequent menstruation with regular cycle (principal)
CPT/HCPCS: 76830; 76856

== ENCOUNTER 2022-10-17 07:18 | Outpatient (RCR) | payer OTHER, SELFPAY ==
--- NOTE | 2022-10-13 09:05 | BH.SGPN.GN ---
Behaviors/Verbalizations/Mental Status: [] Eye contact is good. Motor activity is appropriate. Appearance is casual. Speech is Appropriate. Mood is depressed. Affect is congruent. Thoughts are linear and logical. No evidence of psychosis. Reviewed daily check in sheet and no reports of suicidal ideations or intent. Client Response/Progress/Benefit: [] Pt participated at times during the group discussion. Attentive. Daily symptom tracker notes 3/5 for depression and 2/5 for anxiety. Pt reported feeling overwhelmed this week. Shared stressors related to FMLA, medical appointment, and other responsibilities. Check-in was very brief and mostly superficial. Limited progress noted per pt report as she is struggling with motivation and feeling overwhelmed. Benefited from group support, encouragement, and feedback. Will continue in IOP to prevent decompensation, stabilize mood, and improve functioning. Narrative Note: []
[2022-10-17 00:42] VITALS: BP 118/74; PULSE 83
--- NOTE | 2022-10-18 09:03 | BH.SGPN.GN ---
Behaviors/Verbalizations/Mental Status: []Pt alert and oriented, casually dressed and groomed. Eye contact good. Motor activity appropriate. Speech within normal limits. Affect congruent, mood depressed. Thoughts linear, logical, no signs of hallucinations or delusions. Reviewed pt?s symptom tracker, no reported suicidal ideation, denies plan, or active intent as of 10/18/22. Client Response/Progress/Benefit: []Pt responded well to session, open to processing with group and engaged. Pt reports feeling dejected this morning. Discussed recently looking through an old journal and feeling like her mental health has not improved in the time that has passed since the original entry. Discussed feeling defeated by her depression and experiencing hopelessness that her depression will never truly get better. Receptive of working with group and therapist to challenge this and identify areas she has made progress since beginning the IOP program. Shared getting here today rather than staying in bed was at least one step towards progress and a personal win. Pt appeared to benefit from supportive feedback of the group, as well as reflecting on mental health wins. Pt will continue IOP tx to promote improved mood stability, encourage coping skill application, and prevent decompensation. Narrative Note: []
--- NOTE | 2022-10-18 10:10 | BH.SGPN.GN ---
Behaviors/Verbalizations/Mental Status: [] Eye contact is fair. Motor activity is appropriate. Appearance is casual. Speech is Appropriate. Mood is dysthymic. Affect is constricted. Thoughts are linear and logical. No evidence of psychosis or hallucinations. Client Response/Progress/Benefit: [] Pt was an active participant in group discussion and activity. Attentive during psychoeducation. Along with peers was able to identify barriers to taking action on her mental health which included: fear of failure, the unknown, change, one's environment, past negative experiences, being passive, and fear of vulnerability. Identified several symptoms and stressors that she feels are holding her back from progress such as lack of motivation, fear of failure, and feeling overwhelmed. Benefited from increased self-awareness of obstacles. Will continue in IOP to increase follow through on goals, increase heatlhy coping, and prevent decompensation.
--- NOTE | 2022-10-18 10:40 | PCM.BH.PN_ITS ---
Progress Note Progress Note: History of Present Illness/Interim History: The patient is a 42-year-old single, female with a history of depression, anxiety and ADHD who is seen in follow-up at the [facility] behavioral health IOP program where she is being treated for depression. I last saw the patient about 2 weeks ago and at that time the Wellbutrin dose was increased. The patient has been taking it about 12 days and is tolerating it well with no side effects. She states that she does feel more alert on the higher dose but has not noticed much more improvement than that so far. She feels she is learning valuable skills in the program but she is having a hard time doing any work on it outside of the program due to her low energy level and lack of motivation. She still finds it hard to get out of bed in the morning also. Her mood is still very depressed but she has had a few better days in the last 2 weeks. She still endorses hopelessness, worthlessness, anhedonia, low energy and passive thoughts of . She denies suicidal ideation, plan for suicide, homicidal ideation, hallucinations, delusions. She is still a worrier but denies any panic attacks. Current Psychiatric Medications: [] Wellbutrin XL 450 mg p.o. every morning (dose increased 12 days ago and has been on the medication for over 10 years); trazodone 75 mg p.o. nightly; Zoloft 100 mg p.o. twice daily. (Today patient states that she supposed to take the Zoloft 100 mg twice daily but she misses the second dose over half of the time so is in essence only taking 100 mg of Zoloft daily over half of the time.) Mental Status Examination: [] The patient is a 42-year-old female who appears normal for stated age and is casually dressed and groomed with good hygiene. She is ambulatory with a normal gait and casually dressed and groomed with good hygiene. She has no psychomotor agitation or retardation. Eye co ntact is good and speech is normal rate and rhythm and fluent with no pressure. Mood is depressed. Affect is constricted. Thought process is goal-directed and organized. Thought content: There remains evidence of passive thoughts of and low motivation. There is no evidence of plan for suicide, suicidal ideation, homicidal ideation, hallucinations or delusions. Reality testing is intact. Intelligence is average. Judgment is intact. Insight: Fair and improving. Impulsivity: Low. Diagnoses: [] 1. Major depressive disorder, recurrent, severe without psychosis 2. Social anxiety disorder 3. Body dysmorphic disorder 4. Primary support, work issues Plan: [] The patient will continue the IOP program in behavioral health at [facility] as the structure, support, education and group therapy will hopefully prevent worsening of the patient's symptoms. She felt safe during the interview and if it anytime she does not feel safe she will let us know or go to the emergency room. The risks, options, possible complications and side effects of the medications were again discussed with the patient and she understands and accepts these. No medication dosage changes were ordered today but the patient agrees to take her Zoloft 200 mg p.o. at bedtime as she has been missing the second dose of the Zoloft for years. The patient will continue to follow-up with her outpatient providers and I will see the patient in follow-up in several weeks.
--- NOTE | 2022-10-18 11:10 | BH.SGPN.GN ---
Behaviors/Verbalizations/Mental Status: []Pt alert and oriented, neatly dressed and groomed. Eye contact good. Motor activity appropriate. Speech within normal limits. Affect constricted, mood depressed. Thoughts linear, logical, no signs of hallucinations or delusions. Client Response/Progress/Benefit: []Pt responded well to session, taking notes and participating in worksheet discussion. Pt connected with the zones of action/change and that making sustainable change comes from stepping out of one?s comfort zone into the learning zone. Pt set a goal to gain control over pt?s fear of failure. Pt reported plans to challenge self to set and achieve one ?mini? goal a week. Pt identified support pt will need as having a list of mini goals to pick and a journal to keep track of her wins. Appeared to benefit from identifying a small goal to benefit mental health. Will continue IOP tx to prevent decompensation, improve self-confidence, and challenge distorted thinking patterns. Narrative Note: []
--- NOTE | 2022-10-20 09:05 | BH.SGPN.GN ---
Behaviors/Verbalizations/Mental Status: [] Eye contact is good. Motor activity is appropriate. Appearance is casual. Speech is Appropriate. Mood is depressed. Affect is flat. Thoughts are linear and logical. No evidence of psychosis. Reviewed daily check in sheet and no reports of suicidal thoughts. Client Response/Progress/Benefit: [] Pt participated when prompted. Attentive. Daily symptom tracker notes 05/21 for depression and 03/23 for anxiety. Check was in was brief. She reports recent decompensation. ? Yesterday was a rough day?. ? It was hard to even get out of bed?. ? I?m on a rollercoaster?. Difficulty regulating her depression and finding motivation. Isolating. Challenging to utilize skills. No progress noted. The group provided support, encouragement, and feedback which was beneficial . Will continue in IOP to prevent decompensation, increase healthy coping, and to improve functioning. Narrative Note: []
--- NOTE | 2022-10-20 10:15 | BH.SGPN.GN ---
Behaviors/Verbalizations/Mental Status: []Pt alert and oriented, neatly dressed and groomed. Eye contact good. Motor activity appropriate. Speech within normal limits. Affect congruent, mood depressed. Thoughts linear, logical, no signs of hallucinations or delusions. Client Response/Progress/Benefit: []Pt was an active?participant in small group discussion. Pt?s group worked together to identify benefits of healthy relationships which include; feelings of belonging, safety, and support. Group identified factors that lead to unhealthy relationships. Pt?s personal factors included fear of confrontation so pt avoids relationships. Actively participated in group experiential activity and expressed ideas to group. Benefited from increased insight and awareness of benefits of healthy relationships and factors that contribute to unhealthy relationships. Will continue IOP tx to prevent decompensation, improve daily functioning, and reduce isolation. Narrative Note: []
--- NOTE | 2022-10-20 11:10 | BH.SGPN.GN ---
Behaviors/Verbalizations/Mental Status: [] Client alert and oriented, casually dressed and groomed. Eye contact good. Motor activity appropriate. Speech within normal limits. Affect congruent, mood euthymic, slightly anxious. Thoughts linear, logical, no signs of hallucinations or delusions. Client Response/Progress/Benefit: [] Client responded well to session, engaged and taking notes. Worked with group to identify characteristics of healthy and unhealthy relationships. Attentive during psychoeducation about characteristics of healthy, unhealthy, and abusive relationships. Client stated within their current relationships she does well with respect. Client reported an area she would like to improve in is communication. Client shared she could so by improving her willingness to sit with uncomfortable emotions. Appeared to benefit from identifying area client wants to work on to build healthier relationships. Client to continue IOP to increase healthy coping skills, challenge distortions, and prevent decompensation. Narrative Note: []
--- NOTE | 2022-10-20 16:20 | BH.MDN ---
Multi-Disciplinary Note Note 45-min Individual: Time Started:: 12:10 Date: 10/20/22 Purpose of session/treatment goals addressed:: Purpose of session was to address goals 1 and 2 from MTP. Eye Contact:: Fair Motor Activity:: Appropriate Appearance:: Casual Speech:: Appropriate Mood:: Dysthymic Affect:: Constricted Thoughts:: Linear, Logical and No evidence of hallucinations/delusions noted Staff Interventions:: thought challenging, motivational interviewing, CBT techniques, rapport building, strengths perspective, goal setting and taught coping skills Client Response:: Client reported she has been struggling with applying her skills outside treatment environment. Client reported she was struggling on Sunday evening when looking back at old journals recognizing she is having similar problems as she has in the best, especially with follow through with what she is learning. Pt reported although she had a rough evening on Sunday she did better on Sunday. Client stated she went on a walk at the park after IOP and felt more positive. Client expressed frustration that yesterday she cancelled coming to group because she didn't have motivation to get out of bed. Client reported she didn't do much for the rest of the day. Client stated she is frustrated that she had a good day Sunday then went back to old behaviors the next day. Client stated she did not follow through with homework from last individual session of following through with using a daily schedule. Client problem solved with therapist to identify ways to improve follow through of skills. Receptive of using visual aid next to her nightstand that reminds her of the consequences of staying in bed. Client agreed it may be helpful to focus on identifying just a few goals for the weekend to create realistic expectations and increase confidence in ability to follow through. Client reported her goals for this weekend are to get out of bed when she wakes up, do her PT exercises, and engage in at least one fun activity. Therapist helped client with thought challenge. Encouraging client to reframe good day/bad day to good moment/bad moment. Client connected when she identified yesterday morning as a bad day it dictated the rest of her day. Client open to working on being more mindful of her thought patterns. Risks/Concerns:: Denies suicidal ideation, plan, or intention to date. Progress Toward Goals/Plan:: Progress limited. Client struggling with consistently following through on skills and strategies outside treatment environment. Client continues to report depression to be moderate most day. Client reports anxiety is status quo, starting to think about activities outside the home she'd like to do but not ready yet. Client to continue IOP to increase consistent follow through of skills, challenge negative thinking, and prevent decompensation. Time Stopped:: 12:55
--- NOTE | 2022-10-23 09:01 | BH.SGPN.GN ---
Behaviors/Verbalizations/Mental Status: []Pt alert and oriented, casually dressed and groomed. Eye contact good. Motor activity appropriate. Speech within normal limits. Affect congruent, mood anxious but euthymic. Thoughts linear, logical, no signs of hallucinations or delusions. Reviewed pt?s symptom tracker, no suicidal ideation reported, denies plan, or active intent as of 10/23/22. Client Response/Progress/Benefit: []Pt responded well to session, open to processing with group and engaged. Pt reports feeling hopeful this morning as she was able to use opposite action and accomplish several goals over the weekend. Identified her mental health wins as going for a walk and doing her physical therapy exercises for back pain. An additional win noted as signing up for a pottery class which is something she has been wanting to get back into. Expressed feeling proud and excited to begin the course next week. Current stressor identified as struggling with motivation yesterday. Identified skills and self-talk statements she can use today to ensure follow-through on her daily goals. Pt appeared to benefit from supportive feedback of the group, as well as reflecting on mental health wins. Pt will continue IOP tx to promote mood stability, improve self-compassion, and continue to improve functioning. Narrative Note: []
--- NOTE | 2022-10-23 10:15 | BH.SGPN.GN ---
Behaviors/Verbalizations/Mental Status: []Eye contact is fair. Motor activity is appropriate. Appearance is casual. Speech is Appropriate. Mood is dysthymic. Affect is constricted. Thoughts are linear and logical. No evidence of psychosis. Client Response/Progress/Benefit: []Pt participated during the group discussion. Attentive during psychoeducation and actively engaged during experiential activity. Participated during interactive discussion on aspects of fixed mindset. Group identified several aspects of fixed mindset which include: inflexible, belief that one cannot grow, absolute thinking, and all of one's skills, traits, and behaviors can't change. Group identified personal examples of fixed thinking in which pt shared personal fixed thoughts as: I've tried and failed before, so there's no use in trying and It's too much work to get where I want to be and maintain it. Benefited from increased understanding of personal fixed mindsets and how they can impact mental health. Will continue in IOP to increase consistent use of healthy coping skills, challenge negative thoughts, and prevent decompensation.
--- NOTE | 2022-10-23 11:15 | BH.SGPN.GN ---
Behaviors/Verbalizations/Mental Status: []Pt alert and oriented, neatly dressed and groomed. Eye contact good. Motor activity appropriate. Speech within normal limits. Affect congruent, mood depressed. Thoughts linear, logical, no signs of hallucinations or delusions. Client Response/Progress/Benefit: []Pt was an active participant during activity and discussion AEB providing some input, connecting with peers, as well as taking notes throughout. Pt did well to engage as group worked on identifying characteristics and benefits of adopting a growth mindset. Worked with fellow participants in reframing the example fixed thoughts into growth mindset thoughts. Pt worked on changing own fixed thought of ?I?ve tried and failed before so there is no use trying? to growth thought of ?I have new skills to use.? Benefitted from discussing benefits of growth mindset and brainstorming strategies for prompting growth-mindset. Pt appeared to benefit from working in small groups to challenge own thoughts and help peers. Pt will continue IOP tx to reduce negative thinking patterns, improve daily functioning, and increase self-compassion. Narrative Note: []
--- NOTE | 2022-10-24 15:19 | BH.TPR ---
Treatment Plan Review Demographics Date of Admission:: 10/02/22 Date of Treatment Plan Review:: 10/25/22 Admitting Diagnoses:: 1. 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 Social anxiety disorder 3. Body dysmorphic disorder 4. Primary support, work issues Current Diagnoses:: 1. 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 Social anxiety disorder 3. Body dysmorphic disorder 4. Primary support, work issues Patient Status Patient's Response to Treatment:: Pt responding well to treatment AEB consistently attending IOP, engaging in group sessions, and taking notes throughout group sessions. Pt does struggle with follow through on homework and goals created in individual sessions. Status of Current Problems and Symptoms: Ongoing problems. Client continues to report moderate depressed symptoms, low motivation, low energy, and apathy. Client struggles with getting up in the morning, especially on days she doesn't attend IOP. Client showing some improvement with leaving her apartment and using calming skills to help manage anxious symptoms. Per DSM 5 cross cutting measure at review her overall mental health symptoms have decreased by 14%. Progress Problem #1: Problem Name:: Depression Status of Goals:: Obj 1 - progress noted, ongoing work encouraged. Pt is able to identify healthy coping skills like opposite action, challenge distorted thoughts, change environment, and engaging in a hobby. Pt struggles with consistently applying skills. Obj 2 - progress, ongoing work encouraged. Per DSM 5 cross cutting measure her depressed scores have decreased by 25%. Team Recommendations:: Team recommends continue current goals and objectives to increase consistent use of skills and follow through on goals. Problem #2: Problem Name:: Anxiety Status of Goals:: Obj 1 - progress noted, ongoing work encouraged. Pt able to identify calming skills like belly breathing, grounding, mindfulness, and engaging in healthy distractions. Pt struggles with consistent application of skills. Obj 2 - met, ongoing work encouraged. Per pt's DSM 5 cross cutting measure pt's anxiety has decreased by 43%. Team Recommendations:: Team recommends continue current goals and objectives to increase consistent use of skills and follow through on goals.
--- NOTE | 2022-10-25 10:00 | BH.SGPN.GN ---
Behaviors/Verbalizations/Mental Status: [] Eye contact is good. Motor activity is appropriate. Appearance is casual. Speech is Appropriate. Mood is anxious. Affect is congruent. Thoughts are linear and logical. No evidence of psychosis. Reviewed daily check in sheet and no reports of suicidal ideations or intent. Client Response/Progress/Benefit: [] Pt participated at times during the group discussion. Attentive. Daily symptom tracker notes 3/5 for depression and 2/5 for anxiety. Pt states that it was very challenging to get up and get here today. She shared that if she feels that she is going to be late she simply doesn't come. Aware that this is type of absolute thinking and this AM she was able to challenge that thinking and attend I said that others are late and its no big deal. Shared depression and negative thinking and examples of other areas of her life with similar absolute thinking impacts her mental health. Emotion for today is displeased with myself. Group provided support and helped with challenging negative thoughts/beliefs. Progress noted per pt report as she utilized skills this AM to improve functioning. Benefited from group support, encouragement, and feedback. Will continue in IOP to prevent decompensation, increase healthy coping, and improve functioning. Narrative Note: []
--- NOTE | 2022-10-25 10:15 | BH.SGPN.GN ---
Behaviors/Verbalizations/Mental Status: []Pt alert and oriented, neatly dressed and groomed. Eye contact good. Motor activity appropriate. Speech within normal limits. Affect congruent, mood depressed. Thoughts linear, logical, no signs of hallucinations or delusions. Client Response/Progress/Benefit: [] Pt receptive to session AEB contributing to discussion, as well listening attentively to others, and taking notes. Worked with group to brainstorm the positive and negative aspects of stress on physical and mental health. Group did well to identify the benefits of stress as well as the impact of distress on performance, relationships, and mental health. Pt identified their personal top stressors as: their mental health, work stress, family, and undone chores. Pt seemed to benefit from increased awareness of current stressors and impact stress has on mental health. Recommended to continue IOP tx to prevent decompensation, improve daily functioning, and reduce negative thinking patterns. ? Narrative Note: []
--- NOTE | 2022-10-25 11:15 | BH.SGPN.GN ---
Behaviors/Verbalizations/Mental Status: [] Eye contact is good. Motor activity is appropriate. Appearance is casual. Speech is Appropriate. Mood is anxious and dysthymic. Affect is congruent. Thoughts are linear and logical. No evidence of psychosis. Client Response/Progress/Benefit: []Pt was an active participant in group discussions and experiential activity. Attentive during psychoeducation on the 4 A's (Avoid, adapt, alter, accept) of coping with stress as well as strategies to identify stressors in which one has no control, little control, or a great deal of control over. 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 Shared she could avoid unhealthy coping/distraction and alter her approach by putting on music to increase enjoyment. Was able to identify the connection between the experimental activity and utilization of stress management skills. Benefited from increased awareness of stress management strategies. Will continue in IOP to continue to promote small goal setting, prevent decompensation, and to increase healthy coping skill application. Narrative Note: []
--- NOTE | 2022-10-26 09:00 | BH.SGPN.GN ---
Behaviors/Verbalizations/Mental Status: []Pt alert and oriented, casually dressed and groomed. Eye contact fair. Motor activity appropriate. Speech within normal limits. Affect constricted, mood anxious. Thoughts linear, logical, no signs of hallucinations or delusions. Reviewed pt?s symptom tracker, no risk for suicidal ideation, plan, or intent. Client Response/Progress/Benefit: []Pt responded well to session, receptive to group support. Pt reported mental health positive as going to visit her mom yesterday when she was feeling down instead of staying in her apartment all day. Pt reported additional positive as getting a kit at the store to make earrings, but didn't start any of the earring projects. Pt reported she has been using opposite action to help manage her mood. Pt seemed to benefit from support from group support. Pt will continue IOP tx to increase use of healthy coping skills, improve motivation, and prevent decompensation.
--- NOTE | 2022-10-26 10:05 | BH.SGPN.GN ---
Behaviors/Verbalizations/Mental Status: []Pt alert and oriented, neatly dressed and groomed. Eye contact good. Motor activity appropriate. Speech within normal limits. Affect congruent, mood content. Thoughts linear, logical, no signs of hallucinations or delusions. Client Response/Progress/Benefit: [] Pt was active participant in group discussions and activities. Attentive during psychoeducation. Pt listened during interactive discussion in which the group defined self-care and discussed its benefits. ?Worked with peers in a small group to identify myths related to self-care which included; it takes too much time/money, I don?t deserve it, and it means I?m selfish. Pt participated in small groups where they worked to bust these self-care myths. Benefited from increased awareness of self-care, its benefits, and the consequences of not utilizing self-care strategies. 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 Will continue IOP tx to reduce isolation, improve daily functioning, and increase mood stability. ? Narrative Note: []
--- NOTE | 2022-10-30 09:10 | BH.SGPN.GN ---
Behaviors/Verbalizations/Mental Status: [] Eye contact is good. Motor activity is appropriate. Appearance is casual. Speech is Appropriate. Mood is depressed. Affect is flat. Thoughts are linear and logical. No evidence of psychosis. Reviewed daily check in sheet and no reports of suicidal ideations or intent. Client Response/Progress/Benefit: [] Pt participated at times during the group discussion. Attentive. Emotion for today is hopeful. Daily symptom tracker notes 2/5 for depression and /5 for anxiety. States that she was not productive over the weekend and mainly laid around. She has anxiety about returning to work in 2 weeks. Today she reports wanting to motivated with goals to journal and use skills learned in IOP this week. I have to start trying new things. Limited progress noted as she continues to struggle with energy and motivation. Benefited from group support, encouragement, and feedback. Will continue in IOP to prevent decompensation, stabilize mood, and improve functioning. Narrative Note: []
--- NOTE | 2022-10-30 10:20 | BH.SGPN.GN ---
Behaviors/Verbalizations/Mental Status: []Pt alert and oriented, neatly dressed and groomed. Eye contact good. Motor activity appropriate. Speech within normal limits. Affect constricted, mood calm. Thoughts linear, logical, no signs of hallucinations or delusions. Client Response/Progress/Benefit: []Pt participated in group discussions. Attentive during psychoeducation on stages of change. Participated during experiential activity. Interactive group discussion on why change is difficult in which group verbalized that change involves the unknown, is scary, leads to uncertainly, makes one feel vulnerable, leads to fear of failure, and triggers the pressure of success. Pt feels that change can be good, but pt often gets anxious about ?the pressure of success? if pt can follow through with changes. Pt benefitted from increased awareness of stages of changes and how emotions impact change. Will continue IOP tx to promote mood stability, increase internal motivation, and reduce isolation. Narrative Note: []
--- NOTE | 2022-10-30 11:20 | BH.SGPN.GN ---
Behaviors/Verbalizations/Mental Status: []Pt alert and oriented, casually dressed and groomed. Eye contact good. Motor activity appropriate. Speech within normal limits. Affect congruent, mood anxious and dysthmic. Thoughts linear, logical, no signs of hallucinations or delusions. Client Response/Progress/Benefit: []Pt responded well to session, attentive. Did well to process activity and work with group to relate the strategies used to overcome barriers in the activity to managing change in own life. Pt identified wanting to work on improving her physical activity and getting outside more consistently. Pt identified a barrier as low motivation and fear of failure. Shared following through with this change will improve her physical and mental health, as well as reduce isolation. Pt?s goal today is to complete her physical therapy exercises. Pt will continue IOP tx to further improve mental health symptom management, promote continued application of behavioral health skills, and prevent decompensation. Narrative Note: []
--- NOTE | 2022-11-01 10:10 | BH.SGPN.GN ---
Behaviors/Verbalizations/Mental Status: [] Client alert and oriented, casually dressed and poorly groomed. Eye contact good. Motor activity appropriate. Speech within normal limits. Affect constricted, mood dysthymic. Thoughts linear, logical, no signs of hallucinations or delusions. Client Response/Progress/Benefit: []Client was a mostly passive participant in group session AEB no contributions, however did appear to listen attentively to others. Attentive during psychoeducation on coping skills, why people use unhealthy coping skills, and how to replace unhealthy coping skills. Group came up with list of negative coping skills that included substance use, avoidance, lashing out, and escaping from reality. Group discussed the effects of how negative coping skills can impact mental health in a negative way. Benefited from increased understanding of unhealthy coping skills and the need for developing healthy interna and external coping skills. client will continue IOP tx to increase consistent use of skills outside treatment environment, improve motivation, challenge negative thoughts, and prevent decompensation.
--- NOTE | 2022-11-01 15:50 | BH.MDN ---
Multi-Disciplinary Note Note 45-min Individual: Time Started:: 11:10 Date: 11/01/22 Purpose of session/treatment goals addressed:: Purpose of session was to address goals 1 and 2 from MTP. Eye Contact:: Good Motor Activity:: Appropriate Appearance:: Neat Speech:: Appropriate Mood:: Euthymic Affect:: Congruent Thoughts:: Linear, Logical and No evidence of hallucinations/delusions noted Staff Interventions:: thought challenging, motivational interviewing, CBT techniques, strengths perspective, goal setting and taught coping skills Client Response:: Client reported on she did take her parents dog on a walk which she reported she enjoyed and felt accomplished. Client stated Sunday and Sunday she mostly spent the day at her parent's house dog watching and did not follow through with goals created in the last individual session of leaving her parents house at least once per day to do something different. Client stated she mostly napped and watch TV with the dog. Client noted although she did not get very much complete she did not feel like she was in a deep depression as to why she did not do anything. Client agreed though it would be helpful if she would have accomplished some things around her own apartment so she would be so overwhelmed. Client noted that she has not followed through with previous goal of trying to clean her kitchen and agreed it would be helpful to focus on getting his task complete prior to her going back to work. Client reported her primary care doctor on Sunday did write her off for 2 more weeks then will slowly progress back into work after that. Client notified area of her house that she would like to focus on cleaning is her living room. Worked with therapist to identify small daily goals that she can focus on in order to clean her living around out. Client connected with technique of having boxes or bins available for her to put anything that does not belong living room in the box so she does not get distracted by going to different rooms in the house. Client is hopeful focusing on 1 room at a time and accomplishing a task will make her feel more motivated and less stressed when she is home. 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 Client reported she is worried about what other people think about her and some anxiety about engaging in small talk because she does not like she is interesting life. Client receptive to ideas of how to manage her anxiety in the moment and to allow herself to just be present enjoying her pottery class. Risks/Concerns:: Denies suicidal ideation, plan, and intention. Future oriented. Progress Toward Goals/Plan:: Progress noted with client reporting continued decrease in depression anxiety. Client continues to struggle with consistent follow through on goals created in individual and group therapy. Client continues to struggle with intrinsic motivation to complete task which results in her continuing to feel overwhelmed when she is home due to her environment being cluttered and messy. Client does express anxiety about having to return to work but feels a little better now that she has 2 more weeks to utilize her skills more consistently. Client to continue IOP to increase follow-through of skills outside treatment environment, challenge distortions, and prevent decompensation. Time Stopped:: 11:55
--- NOTE | 2022-11-06 09:05 | BH.SGPN.GN ---
Behaviors/Verbalizations/Mental Status: [] Eye contact is good. Motor activity is appropriate. Appearance is casual. Speech is Appropriate. Mood is depressed. Affect is flat. Thoughts are linear and logical. No evidence of psychosis. Reviewed daily check in sheet and no reports of suicidal ideations or intent. Client Response/Progress/Benefit: [] Pt participated at times during the group discussion. Attentive. Daily symptom tracker notes 5 for depression and 5 for anxiety. Emotion for today is hopeful. Significant mental health win this weekend was that she attended a [employer] class. Shared that it was a positive experience and everyone was nice. Elaborated that she is attempting to be more social and make more connection outside of her mother. Isolation and low energy continue to impact her overall mental health however the weekend was good. Progress noted with increased opposite-action and behavior activation. She is anxious about returning to the [employer] class and attending open sessions and is finding herself finding reasons not to return or avoid open sessions. Benefited from group support, encouragement, and feedback. Will continue in IOP to prevent decompensation, stablize mood, and improve functioning. Narrative Note: []
--- NOTE | 2022-11-06 10:10 | BH.SGPN.GN ---
Behaviors/Verbalizations/Mental Status: []Client alert and oriented, casually dressed and groomed. Eye contact fair. Motor activity appropriate. Speech within normal limits. Affect congruent, mood euthymic. Thoughts linear, logical, no signs of hallucinations or delusions. Client Response/Progress/Benefit: []Client was an active participant in group discussions and activity. Attentive during psychoeducation. Client engaged in activity in which group was able to make connections about how can be easier to find positives in others compared to self. Engaged in interactive discussion on the definition of perspective, how perspective is formed, and why perspective is important in treatment. Client shared her perspective towards treatment today is open-mindedness which she noted the benefits of having a more positive perspective. Will continue in IOP to improve follow through on small goals, challenge negative thinking, and prevent decompensation.
--- NOTE | 2022-11-06 14:05 | BH.MDN ---
Multi-Disciplinary Note Note 45-min Individual: Time Started:: 11:40 Date: 11/06/22 Purpose of session/treatment goals addressed:: Purpose of session was to address goals 1 and 2 from MTP. Eye Contact:: Good Motor Activity:: Appropriate Appearance:: Neat Speech:: Appropriate Mood:: Euthymic Affect:: Congruent Thoughts:: Linear, Logical and No evidence of hallucinations/delusions noted Staff Interventions:: motivational interviewing, CBT techniques, mindfulness skills, strengths perspective, goal setting and taught coping skills Client Response:: Client reported she went to her [employer] class on evening and had a good time. Client stated she felt anxious about going, but is glad she went. Client reported she get frustrated at times during the class because the class is hard, but agreed she needs to work on not comparing herself to others in the class. Client stated she did find herself comparing herself to another participant that was taking the class for the second time. Client recognizes comparisons will likely increase frustration with self and make the class unenjoyable. Client reported prior to class she had gone to the gym to workout. Client stated she was proud of herself for her accomplishments on . Client reported she did miss group Sunday because she overslept which she attributes to being tired from being busy on . Client stated she did not miss IOP due to being depressed. Client reported most of the weekend she spent at her mom's house because her mom just got a new puppy. Client reported she didn't accomplish the small goals set in last individual session of breaking tasks down to clean her living room. Client stated procrastination is barrier to completing the goals. Reported she would tell herself she has time to get the tasks done, but said that to herself everyday which led to inaction. Client stated she thinks sleeping in until 11am or later on the weekends is also a barrier to being productive because she doesn't like to do things in the evening which doesn't give her enough time in the day to get things done. Client reported she would like to get up earlier even on the weekends. Client stated it's a goal she's had for 10 years but hasn't been able to execute. Client identified on a scale of 0-10, with 10 being highly motivated, she is a 6 on desire to change her morning wake up time. Client stated it had been a 5, but since going to the gym and signing up for the pottery class she is starting to see the benefit of doing things. Client couldn't identify what would help her get to a 7. Client reported she thinks it would be helpful to just have a goal of getting up by 8am for one day to see if it is helpful. Client problem solved with therapist to develop plan on helping her get to pottery open session tonight. Client's goals are to dust the living room when she gets home today and to go to pottery session tonight. Provided client with handouts of grounding and breathing tools to help manage anxious symptoms in the moment. Risks/Concerns:: Denies suicidal ideation, plan or intention to date. Progress Toward Goals/Plan:: Progress variable. Client did follow through with attending pottery class for the first time last week. Client starting to notice benefit to mood of getting out of her house and doing something different like a art class and walking at the gym. Client does continue to struggle with follow through on goals of slowly cleaning her apartment. Client able to set the goals and break the goals into smaller parts, but consistently struggles with application of plan. Client is feeling slight increase in anxiety about returning back to work on a reduced schedule next week. Client does report decreased depressed symptoms. Stated her not accomplishing much this weekend wasn't because she was feeling depressed. Client to continue IOP to increase consistent use of skills, challenge negative thinking, and prevent decompensation. Time Stopped:: 12:23
--- NOTE | 2022-11-08 10:10 | BH.SGPN.GN ---
Behaviors/Mental Status: [] Eye contact is fair. Motor activity is appropriate. Appearance is casual. Speech is Appropriate. Mood is euthymic. Affect is constricted. Thoughts are linear and logical. No evidence of psychosis. Client Response/Progress/Benefit: [] Pt engaged participant AEB listening attentively to others, taking notes, and providing input at times. Participated in and was engaged during experiential activity. Engaged during interactive discussion on what failure means to the group in which peers identified that failure is ... not meeting expectations, not having a desired outcome, and not succeeding in a task. Group was able to identify impact of fear of failure. Client stated fear of failure has kept her from applying to new jobs out of fear of messing up in the interview. Attentive during interactive discussion on the role that FOF plays in mental wellness, depression, anxiety, and growth. Benefited from increased awareness of how the role that FOF plays in mental health and decision-making. Will continue in IOP to increase consistent use of healthy coping skills/goals, challenge distortions, and prevent decompensation.
--- NOTE | 2022-11-08 11:10 | BH.SGPN.GN ---
Behaviors/Verbalizations/Mental Status: []Pt alert and oriented, casually dressed and groomed. Eye contact good. Motor activity appropriate. Speech within normal limits. Affect congruent, mood depressed, agitated. Thoughts linear, logical, no signs of hallucinations or delusions. Client Response/Progress/Benefit: [] Pt responded well to session, engaged in the experiential activity and attentive throughout group processing. Pt reported fear of failure has kept Pt from looking for a different job and making new connections. Pt completed fear of failure worksheet and was able to identify thoughts and behaviors that reinforce personal fear of failure including: all or nothing thinking, self-doubt, and isolation. Pt participated in group discussion regarding strategies to overcome fear of failure. Identified wanting to work on starting to improve positive self-talk and self-compassion. Appeared to benefit from increased knowledge of strategies to combat fear of failure and gaining self-awareness. Pt will continue IOP tx to improve mood stability, improve application of behavior activation skills, and prevent decompensation. Narrative Note: []
--- NOTE | 2022-11-10 10:10 | BH.SGPN.GN ---
Behaviors/Verbalizations/Mental Status: [] Eye contact is good. Motor activity is appropriate. Appearance is casual. Speech is Appropriate. Mood is depressed. Affect is congruent. Thoughts are linear and logical. No evidence of psychosis. Client Response/Progress/Benefit: [] Pt was an active participant in group discussions. Attentive during psychoeducation. Participated during interactive discussion on types of support which included; friends, family, professionals, medications, clubs, hobbies, mentors, pets, local agencies, and certain locations (nature, etc). Along with peers identified and discussed obstacles that can prevent one from seeking support which included; isolation, dishonesty, lack of communication, denial, fear of vulnerability, shame, and stigma. Participated in experiential activity and was able to connect this activity to group topic. Benefited from increased awareness of the benefits and importance of maintaining a balanced support system. Will continue in IOP to prevent decompensation, increase healthy coping, and improve functioning. Narrative Note: []
--- NOTE | 2022-11-14 09:00 | BH.SGPN.GN ---
Behaviors/Verbalizations/Mental Status: [] Pt alert and oriented, neatly dressed and groomed. Eye contact good. Motor activity appropriate. Speech within normal limits. Affect congruent, mood anxious. Thoughts linear, logical, no signs of hallucinations or delusions. Reviewed pt?s symptom tracker, no risk for suicidal ideation, plan, or intent 11/14/22 Client Response/Progress/Benefit: []Pt responded well to session, attentive and engaged. Pt reports feeling anxious this morning and pt described herself as consumed by anxiety about returning to work. Pt and her therapist have talked about what pt can do to help transition back to work, but pt is anxious that when she gets back pt will feel dread again. Pt receptive to challenging her perspective and discussion of choices pt has when she returns to work. Pt understands that if she does not do well going back to work, that work environment might not be right for pt. Pt struggled to give herself credit for any wins, but pt shared she went to all four of her appointments yesterday which was good. Pt appeared to benefit from challenging her perspective.. Pt will continue IOP tx to reduce isolation, improve daily functioning, and increase application of healthy coping skills. Narrative Note: []
--- NOTE | 2022-11-14 10:14 | BH.SGPN.GN ---
Behaviors/Verbalizations/Mental Status: []Client alert and oriented, casually dressed and groomed. Eye contact good. Motor activity appropriate. Speech within normal limits. Affect congruent, mood euthymic. Thoughts linear, logical, no signs of hallucinations or delusions. Client Response/Progress/Benefit: []Client receptive of session AEB providing input throughout, listening attentively to others, and taking notes. Attentive throughout psychoeducation on the cognitive triangle and maintenance cycles. Worked on identifying own vicious cycle. Engaged in group discussion reviewing the impact of daily activities and behaviors on either reinforcing unhealthy maintenance cycles and depression or assisting in reducing symptoms (?down? vs ?up? activities). Client identified common ?down? activities they engage in as: staying in bed, excessive Netflix, excessive game playing on ipad, skipping showers, and junk food. Common ?Up? activities client identified included: pets, drinking water throughout the day, time outdoors, and stretching. Appeared to benefit from increased awareness of current behaviors and impact these have on mental health. Pt to continue IOP to increase healthy coping skills, challenge distortions, and prevent decompensation. Narrative Note: []
--- NOTE | 2022-11-14 11:10 | BH.SGPN.GN ---
Behaviors/Verbalizations/Mental Status: [] Eye contact is good. Motor activity is appropriate. Appearance is casual. Speech is Appropriate. Mood is anxious. Affect is congruent. Thoughts are linear and logical. No evidence of psychosis. Client Response/Progress/Benefit: [] Pt responded well to session, attentive and engaged in group discussions and activity. Group shared having patience and being willing to re-evaluate helped the group be successful during activity. Group discussed values and the benefits that knowing one's values can have on one's mental health. Pt explored own values and identified emotional health, physical well-being, and recreation as their top values. Pt set goals to maintain therapy, continue with pottery/earring making, exercise/stretch daily, improve diet, and reach out to support 1-2x weekly to live according to values. Pt appeared to benefit from exploring values and creating a weekly goal. Will continue in IOP to prevent decompensation, increase healthy coping, and to improve functioning. Narrative Note: []
--- NOTE | 2022-11-16 09:25 | BH.SGPN.GN ---
Behaviors/Verbalizations/Mental Status: []Eye contact is good. Motor activity is appropriate. Appearance is casual. Speech is Appropriate. Mood is depressed. Affect is constricted. Thoughts are linear and logical. No evidence of psychosis Client Response/Progress/Benefit: []Pt participated at times during group discussions. Attentive during psychoeducation on 4 Communication Styles (Passive, Passive-Aggressive, Aggressive, Assertive). Participated in small group and participated during interactive discussion on benefits and disadvantages of each communication style. Majority of this group was based in introducing and educating on communication styles. Pt stated she mostly uses passive communication which leads to pt not getting her needs met and lack of confidence. Benefited from increased education and awareness on communication styles and their impact on relationships/mental health. Will continue in IOP to promote mood stability, reduce negative thinking patterns, and improve daily functioning. Narrative Note: []
--- NOTE | 2022-11-16 10:20 | BH.SGPN.GN ---
Behaviors/Verbalizations/Mental Status: []Client alert and oriented, casually dressed and groomed. Eye contact good. Motor activity appropriate. Speech within normal limits. Affect congruent, mood euthymic. Thoughts linear, logical, no signs of hallucinations or delusions Client Response/Progress/Benefit: []Client responded well to session AEB client listening attentively to others and providing input during group discussion. Client did well in the activity to be assertive and ask for feedback. Recognizes if group wasn't willing to actively listen and communicate needs in activity, they wouldn't have been successful. Discussed with group communication strategies used to make activity successful. Attentive during psychoeducation on interpersonal DBT skill IRENA. Identified wanting to use the ?Express? component of [employer] communication as pt shared she does not often express her emotions with supports. Client seemed to benefit from increasing awareness of healthy strategies to improve communication. Will continue IOP tx to improve daily functioning, increase mood stability, and prevent decompensation. Narrative Note: []
== END 2022-11-16 23:59 ==
LOC: BHIOP 07:18
PROVIDERS: PCP Internal Medicine; Referring Provider Psychiatry & Neurology Psychiatry; Visit Provider Psychiatry & Neurology Psychiatry
DX: F33.2 Major depressive disorder, recurrent severe without psychotic features (principal); F41.8 Other specified anxiety disorders; F45.22 Body dysmorphic disorder
CPT/HCPCS: S9480; 90834; 90837; 90853

== ENCOUNTER 2022-11-17 08:27 | Outpatient (RCR) | payer OTHER, SELFPAY ==
[2022-11-17 00:39] VITALS: BP 118/74; PULSE 83
--- NOTE | 2022-11-21 09:05 | BH.SGPN.GN ---
Behaviors/Verbalizations/Mental Status: []Pt alert and oriented, casually dressed and groomed. Eye contact good. Motor activity appropriate. Speech within normal limits. Affect congruent, mood euthymic and anxious. Thoughts linear, logical, no signs of hallucinations or delusions. Reviewed pt?s symptom tracker, no suicidal ideation reported, denies plan, or active intent as of 11/21/22. Client Response/Progress/Benefit: [] Pt responded well to session, open to processing with group and engaged. Pt reports feeling hopeful this morning. Shared a current mental health ?win? as successfully getting through her first two days back at work. Shared she was able to use several skills to keep from getting overwhelmed and felt encouraged by this as well. Additional win identified as spending time watching tennis over the weekend encouraged pt to consider getting into pickleball. Pt discussed however that spending so much time watching t.v. over the weekend was somewhat of a stressor as she felt less active as a result.? Pt appeared to benefit from supportive feedback of the group, as well as reflecting on mental health wins. Pt will continue IOP tx to promote mood stability, improve self-confidence, and continue to improve functioning as pt transitions back to full-time employment. Narrative Note: []
--- NOTE | 2022-11-21 10:10 | BH.SGPN.GN ---
Behaviors/Verbalizations/Mental Status: [] Client alert and oriented, casually dressed and groomed. Eye contact good. Motor activity appropriate. Speech within normal limits. Affect full, mood euthymic. Thoughts linear, logical, no signs of hallucinations or delusions Client Response/Progress/Benefit: [] Client was an active participant in group discussion and experiential activity. Attentive during psychoeducation on resilience. Participated in interactive discussion with peers on the definition of resilience and where it comes from. Group identified what can impact resilience. Identified barriers to resilience to include: extreme thinking, outside comfort zone, learned helplessness, and repeated traumas/hardships. Worked well with peers in small group in which they identified factors that contribute to resilience. Stated when she is struggling with being resilient tends to isolate. Benefited from increased awareness of resilience and the factors that contribute to building resilience. Will continue in IOP to improve follow through on goals/responsibilities, increase healthy coping skills, and prevent decompensation.
--- NOTE | 2022-11-21 15:01 | BH.MDN ---
Multi-Disciplinary Note Note 45-min Individual: Time Started:: 11:13 Date: 11/21/22 Purpose of session/treatment goals addressed:: Purpose of session was to address goals 1 and 2 from MTP. Eye Contact:: Good Motor Activity:: Appropriate Appearance:: Casual Speech:: Appropriate Mood:: Euthymic Affect:: Congruent Thoughts:: Linear, Logical and No evidence of hallucinations/delusions noted Staff Interventions:: thought challenging, CBT techniques, discharge planning, strengths perspective, reviewed DSM-5 and other (reviewed treatment progress) Client Response:: Client reported she returned back to work last week and stated work was not as bad as she thought it would be. Client reported she did not have people from work asking her why she was off for the last few weeks. Client stated returning back to work was not as overwhelming as she had thought it would be because while she was gone several of her coworkers took on some of the task which made it easier for her return. Client reported at times utilize belly breathing to help manage emotions in the moment while at work. Client stated she did not have to walk way from her desk to take a break in either day she went to work. 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 Client stated it has been helpful for her to be proactive by showering the night before which is saving her some time in the morning to get to work on time. 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 Client stated since this is going to help with decreasing fast food eating since she typically goes to that since it is easy. Client reported continues to struggle with cleaning her apartment but admitted this is something that she has struggled with long-term and thus far has not found a solution that has been helpful. Identified since starting IOP she recognizes she is more willing and open to trying new things even on her own. Client reported she is also taking more responsibility for her health. Client stated she has better awareness of her negative thoughts with some improvement which challenging them. Client shared she has been trying remind herself that she is capable of doing more during her week. She is trying to interrupt the thoughts that it is just not how I am which is a thought she realizes now tends to keep her from engaging in anything that could be new or helpful. Client reported she needs to continue to work on self compassion and being kinder to herself. Reported she will be meeting with increased to hang her for outpatient counseling every Sunday. Client agreeable for homework to complete provided maintenance plan to review on which will be her last day. Risks/Concerns:: Denies suicidal ideation, plan, or intention. Progress Toward Goals/Plan:: Client progress noted with her returning back to work last week for 2 days and reporting and not been as stressful as she thought. Client able to make it to work on time both days which is something she has historically struggled with. Reviewed DSM-V scores with client in which she decreased it her overall mental symptoms by 76%, depression by 75%, and anxiety by 71%. Client reported being struck by the scores because she expected herself to only decrease by few points. Client started to give herself more credit for the progress she has made since being in [facility]. Client is established with outpatient counseling and psychiatry. She sees Dr. Dr. French for psychiatry and Charleen Ovalle for individual counseling. Client is to discharge from [facility] on . Time Stopped:: 11:58
--- NOTE | 2022-11-23 09:10 | BH.SGPN.GN ---
Behaviors/Verbalizations/Mental Status: [] Eye contact is good. Motor activity is appropriate. Appearance is casual. Speech is Appropriate. Mood is euthymic. Affect is full. Thoughts are linear and logical. No evidence of psychosis. Reviewed daily check in sheet and no reports of suicidal ideations or intent. Client Response/Progress/Benefit: [] Pt participated at times during the group discussion. Daily symptom tracker notes 03/23 for anxiety, depression, and irritability. Shared with the group that she has been maintaining at work. She was able to identify several mental health wins as she is utilizing coping skills more consistently, engaging in more social outlets, and overall has changed her perspectives on her mental health. Emotion for today is hopeful. Today was her final day in [facility] and she shared with the group her progress as well as the topics which resonated most with her. Benefited from group support, encouragement, and feedback. Will be discharged from [facility] today. Narrative Note: []
--- NOTE | 2022-11-23 10:14 | BH.SGPN.GN ---
Behaviors/Verbalizations/Mental Status: []Eye contact is good. Alert and oriented. Motor activity is appropriate. Appearance is casual. grooming is appropriate. Speech is Appropriate. Mood is euthymic and anxious. Affect is congruent. Thoughts are linear and logical. No evidence of psychosis or hallucinations. Client Response/Progress/Benefit: []Client was an active participate AEB providing contributions, listening attentively to others, and taking notes throughout. The group identified the impact of emotions on communication such as blaming or externalizing, shutting down, misperceiving the communication, lashing out, and not being able to express oneself. During group activity, client identified feeling anxious when trying to interpret another participant?s non-verbal communication to then guide another peer. Pt reflected she did not want anyone to get hurt. Provided insight that situations in which she has limited information or the outcome is uncertain often result in pt experiencing increased anxiety. Client benefited from session by gaining an increased understanding on the importance of managing emotions to d/c from IOP and continue with outpatient therapy to further improve mood stability, improve use of skills for better symptom management, and prevent decompensation. Narrative Note: []
--- NOTE | 2022-11-23 11:10 | BH.SGPN.GN ---
Behaviors/Verbalizations/Mental Status: []Pt alert and oriented, casually dressed and groomed. Eye contact good. Motor activity appropriate. Speech within normal limits. Affect congruent, mood euthymic. Thoughts linear, logical, no signs of hallucinations or delusions. Client Response/Progress/Benefit: [] Pt engaged in session AEB pt listening attentively to peers and providing input. Attentive during psychoeducation on 4 zones of regulation. Pt able to identify feelings and behaviors for each zone. Pt identified coping skills one can use to support self in each zone. Reported skills will practice when needs to manage emotions include: get outside, take a walk, identifying daily GLAD, and meditating. Benefited from increased education on zones of regulation or stages of alertness for emotions and healthy coping skills to use for each zone. Pt has demonstrated treatment progress since starting IOP and will discharge from IOP today. Pt is returning to work full-time next week.
--- NOTE | 2022-11-23 15:42 | BH.DS_ITS ---
Discharge Summary Demographics Date of Admission:: 10/02/22 Discharge Date: 11/23/22 Presenting Problems at Admission:: The patient is a 42-year-old single, female with a history of depression, anxiety and ADHD who is referred by her primary care provider to the [facility] behavioral health IOP program for worsening depression, thoughts of and isolation. 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 The patient is having a hard time functioning at home and at work and has a hard time leaving her apartment lately due to her depression and anxiety. She has a lot of social anxiety partially due to her body image issues which she has had since her teens. Her mood is sad and she has low motivation. She endorses hopelessness, worthlessness, anhedonia, decreased concentration, low energy, passive thoughts of . Discharge Diagnoses:: 1. 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 Social anxiety disorder 3. Body dysmorphic disorder 4. Primary support, work issues Reason for Discharge:: Client has shown significant treatment progress, has started to return to work, and no longer meets criteria for IOP. Treatment Progress During Treatment & Response: Progress noted AEB DSM 5 scores at discharge. Per DSM 5 cross-cutting measure scores indicate a 75% reduction in depression, 71% decrease in anxiety, and an overall 76% decrease in mental health symptoms. Pt reports increased healthy coping skills, recent improvement in motivation, and successfully making it to work on time since returning on a reduced schedule. Pt responded well to treatment AEB mostly consistent attendance, did struggle with showing up on time. Pt often took notes throughout sessions and contributed at times to group discussions. Issues Still to be Addressed:: Pt could benefit from continued work on core beliefs about herself. Pt's beliefs about herself seem to be barrier to pt making changes in her morning routine, cleaning her apartment, and keep her from trying new things. Pt recognizes when it comes to making life changes she will tell herself that's just not who I am, which convinces her to not try something different. Discharge Recommendations/Instructions:: Pt is to continue outpatient counseling with Suha Ovalle and Dr. French for outpatient psychiatry. Discharge Handout
== END 2022-11-23 12:08 | disposition home or self-care (01) ==
LOC: BHIOP 08:27
PROVIDERS: PCP Internal Medicine; Referring Provider Psychiatry & Neurology Psychiatry; Visit Provider Psychiatry & Neurology Psychiatry
DX: F33.2 Major depressive disorder, recurrent severe without psychotic features (principal); F41.8 Other specified anxiety disorders; F45.22 Body dysmorphic disorder
CPT/HCPCS: S9480; 90834; 90853

== ENCOUNTER 2022-11-24 14:00 | Outpatient (RCR) | payer OTHER, SELFPAY ==
--- NOTE | 2022-09-28 11:03 | HP.PTEVAL ---
Patient's Visit Information Visit Information Visit Information: FRANKLIN LOWERY is a 42 year old F referred to Physical Therapy by Dr. Neelam Post DO with a diagnosis of LBP AND CERVICAL RADICULOPATHY. Date of Evaluation: 09/28/22 Physical Therapist: Frances Chapa, PT, Cert MDT Visit Plan Frequency: 2-3x /Week Duration: 4-6 Weeks Plan: TRIAL OF AQUATIC THERAPY X 5 (THEN RE-CHECK WITH PT) FOR LOW BACK PAIN RELIEF, POSTURE CORRECTION/STRENGTHENING, INSTRUCTION IN APPROPRIATE BODY MECHANICS AND ACTIVITY MODIFICATIONS. DLS STARTING WITH A NEUTRAL SPINE PROGRESSING ROM TOLERATED. ALEX LE ROM, STRETCHING AND STRENGTHENING. HEP INSTRUCTION. 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 LAST WORKED 09/18/22 - STATES DR. POST HAS HER OFF WORK AND SHE DOES NOT HAVE A TENTATIVE RETURN TO WORK DATE. FOLLOW UP PENDING WITH DR. POST AGAIN IN 2 WKS. Disability: NO Present symptoms: PATIENT REPORTS HER CHIEF COMPLAINT IS LBP BUT SHE ALSO HAS NECK PAIN. LBP R > L. PATIENT DENIES ALEX LE PAIN, NUMBNESS AND TINGLING. Present since: 5-10 YEARS AGO Pain Scale: WORST 5/10, LEAST 0/10 Currently: 1/10 Is it getting better, worse or staying the same: GETTING WORSE Commenced as a result of: NO APPARENT INJURY Symptoms at onset: LBP Worse: PROLONGED SITTING, SITTING AND REACHING, LIFTING, DIFFICULT TO GET COMFORTABLE IN BED. Better: WALKING THE DOG AROUND THE BLOCK. STANDING IS LIMITED BY KNEE PAIN. Disturbed sleep: DIFFICULT TO GET COMFORTABLE TO GO TO SLEEP BUT PAIN DOES NOT WAKE HER UP. Previous history/Previous treatment: PHYSICAL THERAPY FOR LBP 2011 WITH BENEFIT. NO BACK SURGERY. NO AUDREY'S. NO CHIROPRACTIC. Treatment this episode: MUSCLE RELAXER - HELPS BUT MAKES HER SLEEPY. MISSING A LOT OF WORK. Coughing/sneezing/straining: NEGATIVE Gait: NORMAL Bowel or Bladder Dysfunction: NO Accidents: NO Unexplained weight loss: NO Imaging: RECENT LUMBAR X-RAY: MILD LEVOSCOLIOSIS. RECENT CERVICAL X-RAY: NORMAL (SEE [facility] EMR). PMH/Recent major surgery: CHRONIC NECK PAIN. DEPRESSION - DETENTION - WORKING ON GETTING INTO BEHAVIORAL THERAPY. DX'D WITH SCOLIOSIS IN JR. HIGH BUT STATES NO TREATMENT WAS RECOMMENDED. Objective Objective: Sitting/Standing Posture: POOR. FH. RSH'S. MILD SCOLIOSIS. R ILIAC CREST SLIGHTLY HIGHER THAN LEFT. Active Correction of posture: NE Other Observations: INDEP GAIT AND TRANSFERS WITH NO GROSS DEVIATIONS NOTED. Sensory deficit: ALEX LE LIGHT TOUCH SENSATION GROSSLY INTACT AND SYMMETRICAL ROM deficit: TIGHT ALEX HIP ROTATORS, HS'S AND GASTROC SOLEUS COMPLEX'S. Motor deficit: ALEX LE'S GROSSLY 5/5 WITH MMT'ING EXCEPT HIPS 4/5 Reflexes: ALEX LE'S 3/3 Dural Signs: NEGATIVE ALEX LE'S. Lumbar mvmt loss: flex - MOD (R RIB HUMP) ext - MOD R SG - MIN L SG - MOD PATIENT DENIES INCREASED PAIN WITH LUMBAR ROM TESTING ALL PLANES EXCEPT FLEXION WHICH INCREASES L LBP ON THE WAY DOWN AND R LBP ON THE WAY UP. Core strength: POOR Palpation: NO ACUTE LUMBAR OR HIP TENDERNESS. OTHER: PATIENT WITH RELATIVELY FLAT AFFECT BUT PLEASANT AND COOPERATIVE TO WORK WITH. Balance/Special Test Scores Oswestry Low Back Score: 10 Goals Goal 1:: DECREASE C/O LOW BACK PAIN Goal Time Frame: 4-6 Weeks Goal 2:: IMPROVE LIFTING, WALKING, SITTING, TRAVEL AND WORK/HOMEMAKING FUNCTION Goal Time Frame: 4-6 Weeks Goal 3:: INSTRUCT IN PROPHYLAXIS Goal Time Frame: 4-6 Weeks Anticipated Interventions Patient/Client Instruction: Educate patient on: Condition, Plan of Care and Risk Factors For the Purpose of:: To improve self management Therapeutic Exercise to Include: Strength training, Postural training, Flexibilty training, Neuromotor development, In an aquatic setting and Dynamic Lumbar Stabilization For the Purpose of:: To decrease pain, To increase ROM, To improve muscle performance and motor function, To increase tolerance to activity/condition/position and To improve ability of physical actions for home/community/work/leisure Text: Thank you for the opportunity to evaluate your patient. For Medicare and Medicare HMO plans, please review the plan of care and approve it. It will need to be FAXED BACK to us at [phone] for Medicare purposes. For Medicare only, by signing this I certify the plan of care. Please let me know if there are questions or concerns regarding this plan of care. Physician Signature: Date:
--- NOTE | 2022-10-20 14:06 | HP.PTREVAL_ITS ---
Re-Evaluation Intro: Dr. Neelam Wisdom, DO, It has been my pleasure to treat FRANKLIN LOWERY over the last 6 visits for LBP AND CERVICAL RADICULOPATHY. Please see the progress note below for an update on the physical therapy plan of care! Subjective Subjective: PATIENT REPORTS SHE LIKDE AQUATIC THERAPY AND FEELS STRONGER. STATES SHE IS HAVING LESS BACK PAIN AND THE EX'S DO NOT CAUSE PAIN. PATIENT REPORTS SHE IS DOING INTENSIVE OUT PATIENT BEHAVIOURAL THERAPY SO SHE IS STILL OFF WORK. STATES SHE GOT A [employer] MEMBERSHIP AND PLANS TO CONTINUE HER WATER EX INDEP'LY. TAKING PRESCRIPTION NAPROXEN FOR PAIN NOW (MUSCLE RELAXER WAS MAKING HER TOO SLEEPY). STATES SHE DOESN'T NEED IT EVERYDAY - TAKING IT ABOUT ONCE EVERY 3 DAYS. Objective Objective/Function: PATIENT WAS SEEN TODAY FOR RE-ASSESSMENT OF PROGRESS TOWARD THE SET PT GOALS AND THE NEED FOR FURTHER PHYSICAL THERAPY VS READINESS FOR DISCHARGE. PATIENT IS MAKING GOOD PROGRESS WITH PT AND IS A GOOD CANDIDATE TO CONTINUE PT BASED ON PROGRESS MADE AND ROOM FOR FURTHER IMPROVMENT. PATIENT WOULD LIKE TO CONTINUE WITH WEEKLY AQUATIC THERAPY VISITS FOR EX PROGRESSION SHE TRIES TO TRANSITION TO INDEP POOL EX'S. SHE DOES NOT FEEL READY TO ADD MACHINES AT THIS TIME BUT MIGHT WANT TO CONSIDER IN ANOTHER MONTH OR SO. UPON EXAM TODAY: ROM deficit: PATIENT CONTINUES TO HAVE TIGHT ALEX HIP ROTATORS, HS'S AND GASTROC SOLEUS COMPLEX'S. PATIENT HAS BEEN INSTRUCTED IN HOME STRETCHING BUT REPORTS MINIMAL COMPLIANCE. Motor deficit: ALEX LE'S GROSSLY 5/5 WITH MMT'ING EXCEPT HIPS 4/5 Reflexes: ALEX LE'S 3/3 Dural Signs: NEGATIVE ALEX LE'S. Lumbar mvmt loss: flex - MOD (R RIB HUMP) ext - MIN TO MOD R SG - NIL L SG - MIN PATIENT DENIES INCREASED PAIN WITH LUMBAR ROM TESTING ALL PLANES TODAY. Core strength: FAIR OTHER: PATIENT STILL WITH FAIRLY FLAT AFFECT TODAY AND SMILING MORE DURING THIS SESSION COMPARED TO INITIAL EVAL. HEP INSTRUCTION: ALEX SEATED PIRIFORMIS STRETCHING. Plan Plan Plan: CONTINUE AQUATIC THERAPY DECREASING TO ONCE A WK X 4 (THEN RE-CHECK) FOR LOW BACK PAIN RELIEF, POSTURE CORRECTION/STRENGTHENING, INSTRUCTION IN APPROPRIATE BODY MECHANICS AND ACTIVITY MODIFICATIONS. CORE STRENGTHEING AND FLEXABILITY. ALEX LE ROM, STRETCHING AND STRENGTHENING. HEP INSTRUCTION. Balance/Gait/Functional tests Balance/Special Test Scores Oswestry Low Back Score: 7 Goals Goals Goal 1:: DECREASE C/O LOW BACK PAIN Goal Time Frame: 4-6 Weeks Goal Progress: Progressing Goal 2:: IMPROVE LIFTING, WALKING, SITTING, TRAVEL AND WORK/HOMEMAKING FUNCTION Goal Time Frame: 4-6 Weeks Goal Progress: Progressing Goal 3:: INSTRUCT IN PROPHYLAXIS Goal Time Frame: 4-6 Weeks Goal Progress: Progressing Anticipated Interventions Anticipated Interventions Patient/Client Instruction: Educate patient on: Condition, Plan of Care and Risk Factors For the Purpose of:: To improve self management Therapeutic Exercise to Include: Strength training, Postural training, Flexibilty training, Neuromotor development, In an aquatic setting and Dynamic Lumbar Stabilization For the Purpose of:: To decrease pain, To increase ROM, To improve muscle performance and motor function, To increase tolerance to activity/condition/position and To improve ability of physical actions for home/community/work/leisure Re-Evaluation Ending Re-evaluation ending: Please do not hesitate to contact me at [phone] by phone or Fax: if you have questions or concerns regarding this new plan of care! Sincerely, Frances Chapa, PT, Cert MDT
--- NOTE | 2022-11-24 14:27 | HP.PTDCSUM ---
Discharge Summary D/C summary: It has been my pleasure to treat FRANKLIN LOWERY referred by Dr. Neelam Post DO, with the diagnosis of LBP AND CERVICAL RADICULOPATHY for a total of 10 visit(s). Discharge Date: 11/24/22 Please see the following information for a summary of their discharge status. Subjective Subjective: PATIENT REPORTS THE SUPPORTING MUSCLES ARE STRONGER AND HER BACK DOESN'T HURT MUCH OVER-ALL. PATIENT REPORTS SHE WENT BACK TO WORK LAST SUNDAY AND HER BACK GETS SORE WITH WORK. SHE HAS A SIT/STAND DESK. STATES SHE HAS BEEN DOING ABOUT HALF OF HER POOL EX'S ON HER OWN NOW AND NOT QUITE DOING HEP DAILY WITH JUST GETTING BACK TO WORK. FOLLOW UP PENDING WITH DR. POST FOR HER MENTAL WELLNESS BACK TO WORK IN DEC 2022. PATIENT REPORTS SHE FEELS READY TO CONTINUE HER EX'S [facility] AT THIS POINT AND SHE HAS A [employer]. Pain LBP: Pain Intensity (Out of 10): 1 Overall Improvement % Improvement: 70 Objective Objective/Function: PATIENT WAS SEEN TODAY FOR RE-ASSESSMENT OF PROGRESS TOWARD THE SET PT GOALS AND THE NEED FOR FURTHER PHYSICAL THERAPY VS READINESS FOR DISCHARGE. PATIENT HAS MADE GOOD PROGRESS WITH PT AND IS APPROPRIATE FOR DISCHARGE TO [facility] HOME AND POOL EX AT THIS TIME. PATIENT IS AGREEABLE. UPON EXAM TODAY: ROM deficit: PATIENT CONTINUES TO HAVE TIGHT HS'S AND GASTROC SOLEUS COMPLEX'S. PATIENT HAS BEEN INSTRUCTED IN HOME STRETCHING AND REPORTS MODERATE COMPLIANCE. HIP ROM HAS IMPROVED ALEX. Motor deficit: ALEX LE'S GROSSLY 5/5 Reflexes: ALEX LE'S 3/3 Dural Signs: NEGATIVE ALEX LE'S. Lumbar mvmt loss: flex - MOD (R RIB HUMP) ext - MIN R SG - NIL L SG - MIN PATIENT DENIES INCREASED PAIN WITH LUMBAR ROM TESTING ALL PLANES TODAY. Core strength: FAIR TO GOOD. Goals Goal 1:: DECREASE C/O LOW BACK PAIN Goal Progress: Goal Met Goal 2:: IMPROVE LIFTING, WALKING, SITTING, TRAVEL AND WORK/HOMEMAKING FUNCTION Goal Progress: Goal Met Goal 3:: INSTRUCT IN PROPHYLAXIS Goal Progress: Goal Met Plan Plan: D/C TO [facility] EX. D/C Information d/c sentence: If there are questions or concerns regarding this patient's physical therapy, please feel free to call me at [phone]. Thank you for the referral of this patient. Sincerely, Frances Chapa, PT, Cert MDT Balance/Gait/Functional tests Balance/Special Test Scores Oswestry Low Back Score: 6 Improvement % Improvement: 70
== END 2022-11-24 14:30 | disposition home or self-care (01) ==
LOC: PT 14:00
PROVIDERS: PCP Internal Medicine; Referring Provider Internal Medicine; Visit Provider Internal Medicine
DX: M54.50 Low back pain, unspecified (principal); M54.12 Radiculopathy, cervical region
CPT/HCPCS: 97113; 97162; 97164

== ENCOUNTER → 2023-10-05 | Outpatient (CLI) | payer OTHER, SELFPAY ==
--- NOTE | 2023-10-05 13:59 | BI_ITS ---
MAMMOGRAPHY - BILATERAL SCREENING REASON FOR EXAM: Female, 43 years old. Routine annual screening examination. PERTINENT HISTORY: Non-contributory. TECHNIQUE: Digital bilateral breast pily (3D mammographic acquisition) in the CC and MLO projections. 2-D mediolateral oblique (MLO) and craniocaudad (CC) views of both breasts were obtained. CAD: Full Field Digital Mammography with Computer Added Detection was performed. COMPARISON: Comparison is made with prior study September 28, 2022 and January 26, 2021. FINDINGS: Breast Composition: There are scattered areas of fibroglandular density. There are no dominant masses or suspicious calcifications. No other significant abnormalities are identified. There has been no significant change since the prior study. BI/SCRN MAMM (CAD)W/PILY BILAT IMPRESSION: Stable bilateral screening mammogram. Yearly follow-up mammogram recommended. (A) ASSESSMENT CATEGORY: BIRADS Category 1: Negative. A letter regarding these results will be sent to the patient by the facility within 30 days. Approximately 10% of breast cancers are not detected by mammography. A normal mammogram should not delay biopsy of a clinically suspicious abnormality. [id number] Electronically Signed: Carlos Medellin MD at 15:05 EDT ,
== END | disposition home or self-care (01) ==
LOC: OPBI 13:57
PROVIDERS: PCP Internal Medicine; Referring Provider Obstetrics & Gynecology; Visit Provider Obstetrics & Gynecology
DX: Z12.31 Encounter for screening mammogram for malignant neoplasm of breast (principal)
CPT/HCPCS: 77063; 77067

== ENCOUNTER 2024-06-06 08:44 | Day surgery (SDC) | payer OTHER, SELFPAY ==
--- NOTE | 2024-06-05 16:26 | HP.PCM.OB_ITS ---
History and Physical Date of Admission: 06/06/24 Expand All Collapse All Pre-Op History and Physical HPI: The patient is a 44 year old female presenting for pre-operative visit. She is scheduled for Hysteroscopy D&C, polypectomy with symphion for AUB, endometrial polyps on 06/06/24. Procedure discussed along with risks, benefits and complications. Other alternatives discussed for management. Consent form signed? Yes. PAST MEDICAL HISTORY PAST MEDICAL HISTORY Diagnosis Date ? Acne previously seeing Dr. Stanley ? ADHD (attention deficit hyperactivity disorder), inattentive type ? Anxiety ? Depression Previously seeing Dr. Brunson in [place] ? Endometriosis, uterus 1999 ? History of genital warts ? HPV (human papilloma virus) infection ? Hyperlipidemia ? Hypothyroidism ? Insomnia ? Seasonal allergies PAST SURGICAL HISTORY PAST SURGICAL HISTORY Procedure Laterality Date ? BX OF BREAST; INCISIONAL Left 02/14/2021 ? EXC BREAST LES PREOP PLMT RAD MARKER OPEN 1 LES 04/01/2021 ? WART REMOVAL WHI laser surgery to removal genital warts CURRENT MEDICATIONS Current Outpatient Medications Medication Sig Dispense Refill ? Drospirenone-Ethinyl Estradiol (MANUEL, 28,) 3-0.02 mg per tablet Take 1 tablet by mouth once daily. 84 tablet 1 ? modafinil (PROVIGIL) 200 mg tablet Take 1 tablet by mouth every afternoon. ? EZETIMIBE ORAL Take by mouth. ? MULTIVITAMIN ORAL Take by mouth once daily. ? vitamin A/vitamin D3 (NATURAL VITAMIN D ORAL) Take by mouth once daily. ? sertraline (ZOLOFT) 100 mg tablet Take 1 tablet by mouth twice daily. 180 tablet 1 ? levothyroxine (SYNTHROID) 50 mcg tablet Take 1 tablet by mouth once daily. 30 tablet 5 ? traZODone (DESYREL) 50 mg tablet Take 1.5 tablets by mouth daily at bedtime. 135 tablet 0 ? naproxen (NAPROSYN) 500 mg tablet Take 1 tablet by mouth twice daily as needed. Take with food. (Patient not taking: Reported on 10/12/2022) 60 tablet 1 ? spironolactone (ALDACTONE) 50 mg tablet Take 2 tablets PO in qam and 1 tablet PO qpm 270 tablet 0 ? buPROPion XL (WELLBUTRIN XL) 300 mg 24 hr tablet Take 1 tablet by mouth once daily. 90 tablet 1 ? CETIRIZINE HCL (ZYRTEC ORAL) Take by mouth once daily. ? Fluticasone Furoate (FLONASE SENSIMIST) 27.5 mcg/actuation nasal spray Use 2 Sprays in each nostril once daily. No current facility-administered medications for this visit. ALLERGIES: Sulfa (Sulfonamide Antibiotics) PERSONAL HISTORY: SOCIAL HISTORY Social History Tobacco Use ? Smoking status: Never ? Smokeless tobacco: Never Vaping Use ? Vaping status: Never Used Substance Use Topics ? Alcohol use: No ? Drug use: No FAMILY HISTORY: FAMILY HISTORY FAMILY HISTORY Problem Relation Age of Onset ? Colon Cancer Father 46 ? Cancer Maternal Grandmother skin ? other (lung cancer) Maternal Grandfather REVIEW OF SYMPTOMS: negative except as noted above PHYSICAL EXAMINATION: VITALS: Blood pressure 102/64, height 168.9 cm (5' 6.5), weight 65.3 kg (144 lb), last menstrual period 05/22/2024. GENERAL: The patient is well nourished, well hydrated in no acute distress. , The patient is oriented to time, place, and person. NECK: full range of motion LUNGS: Clear to auscultation bilaterally. no wheezes, rhonchi or rales HEART: Regular rate and rhythm, Normal heart sounds, and No murmurs or gallops IMPRESSION: 44yo with AUB, endometrial polyp PLAN: Hysteroscopy, D&C, Polypectomy with Symphion Pt has been counseled on risks/benefits and alternatives of surgery including but not limited to anesthesia, bleeding, infection, injury to pelvic structures including bowel, bladder, ureters and vessels. Pt wishes to proceed with surg georgi at this time. Pre and post op instructions reviewed I have reviewed and updated past medical and surgical history, medications and allergies Mindi Gu MD Office Visit on 05/28/2024 Note shared with patient
[2024-06-06] VITALS (8 sets, daily range): BP systolic 96–117; BP diastolic 67–83; PULSE 75–91; RESP 16; TEMP 36.3–36.5; O2SAT 95–100; BMI 23.1
[2024-06-06 09:18] LABS: Hematocrit 34.4 % (37-47); Hemoglobin 11.2 g/dL (12.0-15.0); Mean Corp Hgb Conc 32.6 g/dL (32-36); Mean Corpuscular Hgb 28.6 pg (27.0-32.0); Mean Corpuscular Volume 87.8 fL (81-99); Mean Platelet Vol. 8.9 fl (6.2-12.0); Platelet Count 369 K/mm3 (150-450); RBC Distribution Width CV 11.9 % (11.6-14.6); RBC Distribution Width SD 38.5 fl (35.1-43.9); Red Blood Count 3.92 M/mm3 (4.2-5.4); White Blood Count 6.1 K/mm3 (4.4-11.0)
[2024-06-06 09:28] LABS: Internal QC Validated? YES +Cl - CLEAR BKGD
[2024-06-06 09:29] LABS: Pregnancy, Urine Negative Negative; Record Kit Lot#,Urine Preg 899023
--- NOTE | 2024-06-06 09:54 | DCINST_ITS ---
Discharge Instructions Diet Discharge Diet: No restrictions DC O2, CPAP, BIPAP needs Home O2 Discharge instructions: No Dressing / Incision May resume sexual activity in: 1 week Dressing / Incision Call your doctor if you observe: Fever of 101 or Higher, Inability to urinate, Using more than 1 pad per hour and Uncontrolled pain Follow Up Care Please Follow Up With: Mindi Oviedo MD When: 1-2 weeks post OP if you need an appointment please call [phone] Test Results: Test results from this visit will be discussed in further detail at your follow- up appointment, if applicable. Discharge Plan Admission Attending Provider: Mindi Oviedo Primary Care Provider: Neelam Wisdom Instructions Print Language: Macedonian Discharge Orders/Prescriptions Prescriptions: No Action fenofibrate micronized 134 mg capsule 134 mg PO QHS bupropion HCl [Wellbutrin XL] 150 mg tablet extended release 24 hr 450 mg PO DAILY 90 Days Qty: 270 1RF sertraline 100 mg tablet 200 mg PO QHS Qty: 180 1RF trazodone 50 mg tablet 75 mg PO QHS Qty: 135 1RF modafinil 200 mg tablet 200 mg PO DAILY Qty: 30 4RF levothyroxine 50 mcg Tablet 50 mcg PO QHS Zyrtec 10 mg Capsule 10 mg PO DAILY spironolactone 100 mg tablet 100 mg PO Q12H Patient Comments: TAKE 1 TABLET BY MOUTH TWICE A DAY ezetimibe 10 mg tablet 10 mg PO QHS cholecalciferol (vitamin D3) [Vitamin D3] 125 mcg (5,000 unit) tablet 125 mcg PO DAILY drospirenone-ethinyl estradiol [Vestura (28)] 3-0.02 mg tablet 1 tab PO DAILY Referrals / Follow Up: Neelam Wisdom DO [Primary Care Provider] - Disposition Disposition (needs filled in before D/C Order can be placed): Home, Self Care
--- NOTE | 2024-06-06 10:00 | PCM.PRE.AN2 ---
ASA Classification* ASA Classification ASA Classification: 2 Assessment & Plan Anesthesia* Anesthesia Assessment Anesthesia Assessment: Discussed sedation and/or anesthesia options, risks, benefits, and alternatives with patient/parents/legal guardian/POA. Questions invited. The patient/parents/legal guardian/POA seems to understand and agrees to proceed with anesthesia plan. Reviewed the physical assessment, medical history, allergy history and patient home medications list prior to surgery/procedure/anesthetic and documented any changes. Performed airway and anesthesia risk assessments. Anesthesia Type Anesthesia Type: MAC History Source History Obtained from:: Patient Anesthesia Focused Assessment* Temperature: 97.6 F Pulse Rate: 91 Blood Pressure: 101/70 Respiratory Rate: 16 Pulse Ox: 100 Airway Assessment Mouth opens: >3 cm Mallampati Score: II Teeth Condition: Intact Neck Range of motion (ROM): Full ROM Focused Labs Anesthesia Preop lab: CBC WBC 6.1 K/mm3 (4.4-11.0) 06/06/24 09:11 06/06/24 RBC 3.92 M/mm3 (4.2-5.4) L 06/06/24 09:11 06/06/24 Hgb 11.2 g/dL (12.0-15.0) L 06/06/24 09:11 06/06/24 Hct 34.4 % (37-47) L 06/06/24 09:11 06/06/24 Plt Count 369 K/mm3 (150-450) 06/06/24 09:11 06/06/24 CHEMISTRY Glucose 86 mg/dL (74-106) 07/02/18 09:18 07/02/18 COAG Urine Test Negative Negative 06/06/24 08:55 06/06/24 Pre-Assessment Diagnosis/Proposed Procedure Planned Operative Procedure(s): HYSTEROSCOPY D&C POLYPECTOMY Anesthesia History Anesthesia History - marketing operations intern: Anesthesia History - marketing operations intern Hx Hospitalization No 05/23/24 14:11 Any Problems With Anesthesia No 05/23/24 14:11 Cholinesterase deficiency No 05/23/24 14:11 You/Your Family Experience No 05/23/24 14:11 fever (hyperthermia) with Relationship Recent Exposure to Contagious No 06/06/24 09:15 Disease Does patient have nerve No 05/23/24 14:11 stimulator Patient instructed to have device shut off --Does patient have Pacemaker No 06/06/24 09:15 or ICD? When Was Last Pacemaker Check QUESTION #4 FULL TEXT: You/Your Family Experience fever (hyperthermia) with Anesthesia Last Oral Intake Last Oral intake: Last Oral Intake NPO since 00:00 06/06/24 09:15 Meds taken in AM with sips of No 06/06/24 09:15 water? Meds patient instructed to take am of surgery PONV PONV - marketing operations intern: PONV - marketing operations intern Female Yes 05/23/24 14:11 HX of Motion Sickness Yes 05/23/24 14:11 HX of N/V After Surgery No 05/23/24 14:11 Non-Smoker Yes 05/23/24 14:11 Duration of Surgery greater No 05/23/24 14:11 than 60 minutes Number of Risk Factors 3 05/23/24 14:11 PONV Score Moderate Risk 05/23/24 14:11 Height & Weight Height & Weight: Anesthesia: Height & Weight Height 5 ft 6 in 06/06/24 09:15 Weight: 65 kg 06/06/24 09:15 Body Mass Index (BMI) 23.1 06/06/24 09:15 Respiratory Assessment Respiratory Assessment - marketing operations intern: Respiratory Tract Infection Hx - marketing operations intern Hx Respiratory Tract Infection No 05/23/24 14:11 STOP Sleep Apnea STOP Sleep Apnea - marketing operations intern: STOP Sleep Apnea - marketing operations intern Hx Hypertension No 05/23/24 14:11 Hx Sleep Apnea No 05/23/24 14:11 CPAP BIPAP Do you snore loudly (louder No 05/23/24 14:11 than talking or can be heard Do you often feel tired/ Yes 05/23/24 14:11 fatigued/ sleepy during daytime? Has anyone observed you stop No 05/23/24 14:11 breathing during sleep? STOP Results Negative 05/23/24 14:11 QUESTION #5 FULL TEXT : Do you snore loudly (louder than talking or can be heard through closed doors)? Tobacco Use History Tobacco Use History - marketing operations intern: Tobacco Use History - marketing operations intern Tobacco Use Smoking Status Never smoker 05/23/24 14:11 Hx Tobacco Use No 05/23/24 14:11 Years Smoking Packs Smoked per Day Smoking Cessation Date was within the last 15 years Hx Smoking Cessation Date Hx Smoking Cessation Counseling Hematologic Medial History Hematologic Hx - marketing operations intern: Hematologic Medical Hx - intermediate frame tender Hx of Blood Transfusion No 05/23/24 14:11 Hx of Transfusion in last 3 No 05/23/24 14:11 Months Date of Last Transfusion (if within last 3 months) Ever experience any problems No 05/23/24 14:11 with transfusion(s)? Specify any problems Hx of Preganancy in last 3 No 05/23/24 14:11 Months Nurse Filling Out Transfusion DSCHRIBER 05/23/24 14:11 & Questions: Date: 05/23/24 05/23/24 14:11 Time: 14:12 05/23/24 14:11 Patient unable to answer at this time (ie. confused, unrespo /Reproduction History /Reproductive History - marketing operations intern: /Reproductive Hx- marketing operations intern Hx Now No 05/23/24 14:11 Gestational Age (in weeks): EDC: Hx Hx Para Hx Section SAB No 05/23/24 14:11 PFSH Medical History Low iron Back pain Shortness of breath on exertion ADHD Major depressive disorder Social anxiety disorder Body dysmorphic disorder Major depressive disorder, recurrent severe without psychotic features Wears glasses Depression Thyroid disease High cholesterol Non-smoker Home Medications ?Medication ?Instructions ?Recorded ?Last Taken ?Type cetirizine 10 mg capsule (Zyrtec) 10 mg PO DAILY 03/25/21 06/05/24 History levothyroxine 50 mcg tablet 50 mcg PO QHS 03/25/21 06/05/24 History ezetimibe 10 mg tablet 10 mg PO QHS 10/04/22 06/05/24 History spironolactone 100 mg tablet 100 mg PO Q12H 10/04/22 06/05/24 History fenofibrate micronized 134 mg 134 mg PO QHS 11/28/23 06/05/24 History capsule bupropion HCl 150 mg 24 hr tablet, 450 mg (3 x 150 mg) PO DAILY 90 02/27/24 06/05/24 Rx extended release (Wellbutrin XL) days #270 tabs modafinil 200 mg tablet 200 mg PO DAILY #30 tabs 02/27/24 06/05/24 Rx sertraline 100 mg tablet 200 mg (2 x 100 mg) PO QHS #180 02/27/24 06/05/24 Rx tabs trazodone 50 mg tablet 75 mg (1.5 x 50 mg) PO QHS #135 02/27/24 06/05/24 Rx tabs cholecalciferol (vitamin D3) 125 125 mcg PO DAILY 05/23/24 06/05/24 History mcg (5,000 unit) tablet (Vitamin D3) drospirenone 3 mg-ethinyl 1 tab PO DAILY 05/23/24 06/05/24 History estradiol 0.02 mg tablet (Vestura (28)) Allergy/AdvReac Type Severity Reaction Status Date / Time Sulfa (Sulfonamide Allergy Hives Verified 06/06/24 09:14 Antibiotics) Surgical History (Updated 05/23/24 @ 14:16 by Carol Villalpando) History of lumpectomy of left breast History of colonoscopy Social History Smoking Status: Never smoker alcohol intake: never substance use type: does not use Review of Systems (Anesthesia) ROS Narrative System reviewed and no additional complaints, except as documented.
--- NOTE | 2024-06-06 10:20 | EMB_PTH ---
PATIENT: LULY LOWERY LOC: [facility] U#:[id number] AGE/SX: 44/F ROOM: RE06/06/[address]: Dr. Mindi Oviedo, MDDOB: 1980 BED: DIS: 06/06/2024 SPEC #: [id number] RECD: 06/09/24 10:32 STATUS: SAAD MOE #: [id number] INO: 06/06/24 10:[address]: Mindi Oviedo DEPT: SURGICAL PATHOLOGY RECD BY: Darryl Kaufman ENTERED: 06/09/24 10:32 SP TYPE: ENDOM BX/C OTHR DR: Dr. Neelam Wisdom, Tissues: A - Endometrium, NOS Procedures: Surgery Specimen Level IV HEADER OPERATION: Hysteroscopy, D&C, polypectomy PRE-OP DIAGNOSIS: Abnormal uterine bleeding, endometrial polyps TISSUE SUBMITTED: A- Endometrial curettings and polyps MICROSCOPIC DIAGNOSIS A. Endometrium, polyps, curettage: * Polypoid fragments of proliferative endometrium. * Scant benign endocervical and squamous mucosa. * Negative for hyperplasia or malignancy. MICROSCOPIC DESCRIPTION Slides are reviewed. GROSS DESCRIPTION A. Received in formalin labeled, Luly Lowery, and designated endometrial curettings, are multiple red-brown, ragged, irregularly-shaped, polypoid, and soft tissue fragments admixed with mucus that aggregate to 3.0 x 3.0 x 0.2 cm. Totally submitted in one cassette. ROSAMARIA 06/09/2024 CPT:07619
--- NOTE | 2024-06-06 10:30 | OP.PCM_ITS ---
Operative Report (Standard) Operative Information Date of Procedure: 06/06/24 Pre-Operative Diagnosis: AUB, endometrial polyp Post-Operative Diagnosis: same Surgery/Procedure Performed: Hysteroscopy, D&C, polypectomy w/ symphion kaiawhina kohanga reo: Yes Angle Bender: LÓPEZ shanks Tasks completed by virtual customer assistant: Retracting Additional back office medical assistant?: No Type of Anesthesia: MAC RN Documented Start/Stop Times: Operation Date: 06/06/24 10:20 Case Time Into Pre-Op 06/06/24 08:59 Procedure Start Time: 10:20 Procedure Stop Time: 10:27 Select all DRAINS/GRAFTS/IMPLANTS that apply: None Estimated Blood Loss: <5cc Specimen collected: Yes Description of specimen(s) removed: endometrial curettings, endometrial polyps Description of surgery: Informed consent was obtained the patient was taken the operating room she was placed in supine position. She was given anesthesia. She was then placed in the [facility] an acute care [facility] where she was prepped and draped in the normal sterile fashion. At this time the weighted speculum was placed in the posterior fornix of vagina. Single-tooth tenaculum was used to gently grasp the anterior lip the cervix. At this time the uterine cavity was sounded to approximately 7cm. Gentle dilatation was performed once adequate dilatation of the cervix was achieved the hysteroscope using normal saline as a distention medium was placed. Tubal ostia visualized. two small polyps noted by right tubal clarissa, thickened tissue on anterior aspect of uterus. Symphion resecting device used to obtain endometrial curettings and to perform polypectomy. Tissue will be sent to pathology for evaluation. Tenaculum removed. Good hemostasis. Instrument, lap count correct x 2. Vaginal Sweep was negative. Surgical Findings: 2 endometrial polyps noted by right tubal ostia Complications Complications: No Admit VTE Documentation VTE Present on Admission: Yes VTE Mechan Device Prophylaxis: SCD's VTE Pharm Prophylaxis ordered?: No Reason prophylaxis not ordered: Treatment Not Indicated
--- NOTE | 2024-06-06 12:05 | PCM.POST.ANE ---
Anesthesia: Postop Eval I Current Vital Signs Temperature: 97.3 F Pulse Rate: 83 Blood Pressure: 96/67 Respiratory Rate: 16 Pulse Ox: 99 Oxygen Delivery Method: Room Air Assessment Airway patent: Yes Spontaneous unlabored respirations: Yes Mental status: Awake nausea: No Vomiting: No Anesthesia Complication: No Fluid Hydration Crystalloid volume administer (ml): 400 Total IV fluid infused: 400 Progress Note Anesthesia document: Postop Eval 1 completed: Yes
--- NOTE | 2024-06-06 14:04 | PCM.POSTANE2 ---
Anesthesia Postop Eval I Sum Postop Eval Completion status Anesthesia document: Postop Eval 1 completed: No Anesthesia Postop Eval I Summary Anesthesia Postop Eval I Summary: Anesthesia Postop Eval I: Assessment Summary Airway patent Spontaneous unlabored respirations Mental status nausea Vomiting Anesthesia Postop Eval I: Fluid Summary Crystalloid volume administer (ml) Colloids volume administered ( ml) Blood Product volume administered (ml) Total IV fluid infused Anesthesia Postop Eval I: Summary Notes Anesthesia Complication Anesthesia Complication Comment: Post-operative progress note Anesthesia: Postop Eval II Evaluation Mental status: Awake Pain Level: 0 nausea: No Vomiting: No Complications Anesthesia Complication: No
== END 2024-06-06 12:11 | disposition home or self-care (01) ==
LOC: SDC 08:49 → AC 08:51
PROVIDERS: Anesthesiology; PCP Internal Medicine; Referring Provider Obstetrics & Gynecology; Visit Provider Obstetrics & Gynecology
PROC: 0UB98ZZ Excision of Uterus, Via Natural or Artificial Opening Endoscopic (ICD-10-PCS; CPT 58558; principal; 2024-06-06 10:05)
DX: N84.0 Polyp of corpus uteri (principal); N93.9 Abnormal uterine and vaginal bleeding, unspecified; G47.00 Insomnia, unspecified; E78.5 Hyperlipidemia, unspecified; Z79.890 Hormone replacement therapy; F90.9 Attention-deficit hyperactivity disorder, unspecified type; E03.9 Hypothyroidism, unspecified; F32.A Depression, unspecified; F41.9 Anxiety disorder, unspecified
CPT/HCPCS: 58558; 00952; 81025; 85027; 88305; A4216; J2405